=== PATIENT | female | born 1990 | race Caucasian/White ===

== ENCOUNTER 2024-08-21 12:55 | Outpatient (AMB) | payer OTHER, SELFPAY ==
--- NOTE | 2024-08-21 12:56 | A.OFFPC_ITS ---
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 Est Care Intake Note: new patient to establish care Allergies No Known Allergies Allergy (Verified 08/21/24 13:24) Medication List - Last Reconciled 08/21/24 by LION Leo albuterol sulfate 90 mcg/actuation 2 inhalations inhalation Q6H PRN Tobacco use date assessed: 08/21/24 Dental Screening Dental Screen Date: 08/21/24 Did you have a dental visit in the last 12 months?: Yes Did you have a dental problem in the last 6 months where you did not have access to dental care?: No Was dental information given to patient?: Patient has dentist HPI HPI Comments History of Present Illness Details 34-year-old female with irritable bowel syndrome, mild intermittent asthma Status post Social: [facility] Admin Support Health Maintenance: Pap 08/2024 WNL Tdap - declined. Flu declined. 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 c/o blurred vision Has a mole on her back that is growing and changing. Has been present for years. Childhood asthma mild, worse w/ exercise. These sx cont in adulthood. Also has sx when she is sick. Feels winded when climbing 3 stories. Discussed PFT vs CHARLA prn. IBS is well controlled w/ lifestyle and diet mods. Plan: Check routine screening labs refer to Optho for eye exam CHARLA prn, if this does not control sx, let me know and can consider PFT at that time Refer to Derm RTO 1 year sooner PRN PFSH Medical History (Updated 08/21/24 @ 18:14 by LION Leo) Headache STD (female) IBS (irritable bowel syndrome) Asthma Surgical History (Updated 08/21/24 @ 13:14 by Tamara Hinds MA) H/O: Family History (Updated 08/21/24 @ 13:15 by Tamara Hinds MA) Brother Substance abuse Sister Substance abuse Bone cancer Mother Bladder cancer Maternal Grandmother Lung cancer Social History (Updated 08/21/24 @ 13:01 by Tamara Hinds MA) Household Members: Children Housing: Apartment Are you a primary care rep to a significant other at home: Yes Do you presently have visiting nurse or other home services: No Alcohol intake: current Alcohol intake frequency: a few times a month Patient Tobacco Use Status: Never used Tobacco e-Cigarette/Vaping Use: Never Used service: No Current occupational status: employed 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 1. Little interest or pleasure in doing things: not at all 2. Feeling down, depressed, or hopeless: not at all 3. Trouble falling or staying asleep, or sleeping too much: not at all 4. Feeling tired or having little energy: not at all 5. Poor appetite or overeating: not at all 6. Feeling bad about yourself - or that you are a failure or have let yourself or your family down: not at all 7. Trouble concentrating on things, such as reading the newspaper or watching television: several days 8. Moving or speaking so slowly that other people could have noticed. Or the opposite - being so fidgety or restless that you have been moving around a lot more than usual: not at all 9. Thoughts that you would be better off or of hurting yourself in some wa y: not at all Total score: 1 Depression Screening Interpretation: Negative Depression Screening Done: Yes 38046 - PHQ-9 Billing: Yes Source: Developed by Drs. Jeff Armstrong, Idalmis Cardoza, Nicholas Avila and colleagues, with an educational mamie from [employer]. Thrive Questionnaire Date Thrive assessed: 08/21/24 I am a: Patient What is your living situation today?: I have a steady place to live Within the past 12 months, did the food you bought not last and you didn't have the money to get more?: Sometimes True Within the past 12 months, did you worry whether your food would run out before you got money to buy more?: Sometimes True Do you have trouble paying for medicines?: No Do you have trouble getting transportation to medical appointments?: No Do you have trouble paying your heating and electricity bill?: No Do you have trouble taking care of your child, family member or friend?: No Do you have trouble with day-to-day activities such as bathing, preparing meals, shopping, managing finances, etc.?: No Are you currently unemployed and looking for a job?: No Are you interested in more education?: No Please select the resources that you would like help with: None Currently or been in a relationship where the following occur: No concerns reported THRIVE Score: 2 AUDIT C Alcohol Use Questionnaire (AUDIT-C) 1. How often do you have a drink containing alcohol?: Monthly or less 2. How many drinks containing alcohol do you have on a typical day when you are drinking?: 1 or 2 3. How often do you have six or more drinks on one occasion?: Never Total Score: 1 Score Reviewed/Action Taken: Yes FUNMILAYO-7 AMB Questionnaire FUNMILAYO-7 Date FUNMILAYO - 7 assessed: 08/21/24 Feeling nervous, anxious, or on edge: 1 = Several days Not being able to stop or control worryin = Not at all Worrying too much about different things: 0 = Not at all Trouble relaxin = Not at all Being so restless that it is hard to sit still: 0 = Not at all Becoming easily annoyed or irritable: 1 = Several days Feeling afraid as if something awful might happen: 0 = Not at all Total FUNMILAYO-7 score (0-4 normal; 5-9 mild; 10-14 moderate; 15-21 severe): 2 Source: Developed by Drs. Jeff Armstrong, Idalmis Cardoza, Nicholas Avila and colleagues, with an educational mamie from [employer]. FUNMILAYO-7 Assessment Billing FUNMILAYO-7 Assessment Tool: FUNMILAYO-7 Assessment 18934 ACT Questionnaire In the past 4 weeks, how much of the time did your asthma keep you from getting as much done at work, school or at home?: A little of the time During the past 4 weeks, how often have you had shortness of breath?: 3-6 times a week During the past 4 weeks, how often did your asthma symptoms wake you up at night or earlier than usual in the morning?: Not at all During the past 4 weeks, how often have you had to use your rescue inhaler or nebulizer medication?: Not at all How would you rate your asthma control during the past 4 weeks?: Well controlled ACT Interpretation: Negative Score: 21 Review of Systems Const Details: Constitutional: Denies fever. Skin: Denies rash. Eye: Denies eye pain. ENMT: Denies sore throat and nasal congestion. Respiratory: Denies shortness of breath and cough. Gastrointestinal: Denies nausea, vomiting or abdominal pain. Cardiovascular: Denies chest pain and syncope. Genitourinary: Denies dysuria. Musculoskeletal: Denies back pain and extremity pain. Neurologic: Denies headaches, confusion, and weakness. Psychiatric: Denies suicidal thoughts and substance abuse. Allergy/ Immunologic: Denies impaired immunity. Physical exam (Primary Care) Vital Signs: Last Vital Signs Pulse 94 08/21/24 13:02 Resp 13 08/21/24 13:02 BP 110/66 08/21/24 13:02 Pulse Ox 96 08/21/24 13:02 Oxygen Delivery Method Room Air 08/21/24 13:02 BMI result Body Mass Index 25.2 Tobacco/Smoking Status: Tobacco use Status Tobacco use date assessed 08/21/24 08/21/24 13:03 Patient Tobacco Use Status Never used Tobacco 08/21/24 13:03 e-Cigarette/Vaping Use Never Used 08/21/24 13:03 PHQ-9: PHQ-9 Score PHQ-9: Total score 1 08/21/24 13:29 Depression Screening Interpretation: Negative Thrive Assessment: Date of Thrive Assessment Date Thrive assessed 08/21/24 08/21/24 13:16 Currently or been in a relationship where the following occur: No concerns reported Const Other: General: Well developed, well nourished, in no acute distress. Appears stated age. Head: Normocephalic, atraumatic. Eyes: Pupils are equal, round and reactive to light and accommodation. Conjunctivae are clear. Vision grossly normal. Ears: TMs clear AU, EACS WNL Nose: Patent, without discharge. Mouth: There are no ulcers or lesions noted. No inflammation, no post nasal drip, no plaques nor exudates. Neck: Supple, no adenopathy or thyromegaly. Lungs: Clear to auscultation bilaterally. No rales, rhonchi or wheeze noted. Good air flow in all mackenzie. Heart: Regular rate and rhythm. No murmurs, click, rubs or gallops are noted. Abdomen: Bowel sounds present in all quadrants. The abdomen is soft, nontender, with no masses or organomegaly noted. No hernias are noted. Musculoskeletal: Joints are nontender, without swelling, redness, or effusions. Range of motion is observed to be normal. Pulses: Peripheral pulses are equal and palpable bilaterally. Extremities: No clubbing, cyanosis nor edema is noted. Neurologic: Gait and station normal. Cranial Nerves 2-12 intact. Motor strength grossly symmetrical and intact. No sensory loss. Balance normal. Skin: No rashes, ulcer noted. Turgor is good. Skin color is good. Hair and nails are without abnormalities. Scattered nevi noted on extremities and trunk. Posterior back is a raised, pink soft spongy nevus with regular borders about the size of a pea Psych: Normal eye contact, affect and mood appropriate, and normal interactions. Patient is alert and appropriate to context. Coding Level of Care Code New Pt Prev Care 18-39yr([id number] Diagnoses Encounter for general adult medical examination without abnormal findings Z00.00 Atypical mole D22.9 Laboratory exam ordered as part of routine general medical examination Z00.00 Mild intermittent asthma in adult without complication J45.20 Elevated streptolysin O antibody level R76.8 Blurred vision, bilateral H53.8 Influenza vaccination declined Z28.21 Tetanus, diphtheria, and acellular pertussis (Tdap) vaccination declined Z28.21 Additional Codes FUNMILAYO-7 Assessment Billing - FUNMILAYO-7 Assessment Tool: FUNMILAYO-7 Assessment 19842 ([id number]) Asthma Control Questionnaire - ACT Interpretation: Negative ([id number]) Assessment & Plan Assessment & Plan (1) Encounter for general adult medical examination without abnormal findings: Code(s): Z00.00 - Encounter for general adult medical examination without abnormal findings Plan: . (2) Atypical mole: Code(s): D22.9 - Melanocytic nevi, unspecified Category: Medical Plan: . (3) Laboratory exam ordered as part of routine general medical examination: Code(s): Z00.00 - Encounter for general adult medical examination without abnormal findings Category: Medical Plan: . (4) Mild intermittent asthma in adult without complication: Code(s): J45.20 - Mild intermittent asthma, uncomplicated Category: Medical Plan: . (5) Elevated streptolysin O antibody level: Comment: in the past, found during homeopathic workup Code(s): R76.8 - Other specified abnormal immunological findings in serum Category: Medical Plan: . (6) Blurred vision, bilateral: Code(s): H53.8 - Other visual disturbances Category: Medical Plan: . (7) Influenza vaccination declined: Code(s): Z28.21 - Immunization not carried out because of patient refusal Plan: . (8) Tetanus, diphtheria, and acellular pertussis (Tdap) vaccination declined: Code(s): Z28.21 - Immunization not carried out because of patient refusal Plan: . Plan . Orders: Orders Complete Blood Count no Diff Today R76.8 - Other specified abnormal immunological findings in serum, Z00.00 - Encounter for general adult medical examination without abnormal findings Hemoglobin A1c Today R76.8 - Other specified abnormal immunological findings in serum, Z00.00 - Encounter for general adult medical examination without abnormal findings Microalbumin, Random (w Creat) Today R76.8 - Other specified abnormal immunological findings in serum, Z00.00 - Encounter for general adult medical examination without abnormal findings Vitamin B12 and Folate Today R76.8 - Other specified abnormal immunological findings in serum, Z00.00 - Encounter for general adult medical examination without abnormal findings Comprehensive Met. Panel Today R76.8 - Other specified abnormal immunological findings in serum, Z00.00 - Encounter for general adult medical examination without abnormal findings IRON PROFILE Today R76.8 - Other specified abnormal immunological findings in serum, Z00.00 - Encounter for general adult medical examination without abnormal findings TSH reflex Free T4 Today R76.8 - Other specified abnormal immunological findings in serum, Z00.00 - Encounter for general adult medical examination without abnormal findings Vitamin D 25-OH Total Today R76.8 - Other specified abnormal immunological findings in serum, Z00.00 - Encounter for general adult medical examination without abnormal findings Referrals Dermatology Referral D22.9 - Melanocytic nevi, unspecified Ophthalmology Referral H53.8 - Other visual disturbances Medications: New albuterol sulfate 90 mcg/actuation 2 inhalations inhalation Q6H PRN 1 ea 0RF shortness of breath or wheezing
[2024-08-21 13:02] VITALS: BP 110/66; PULSE 94; RESP 13; O2SAT 96; BMI 25.2
== END 2024-08-21 13:42 | disposition home or self-care (01) ==
PROVIDERS: Visit Provider Nurse Practitioner Family
DX: Z00.00 Encounter for general adult medical examination without abnormal findings (principal); D22.9 Melanocytic nevi, unspecified; J45.20 Mild intermittent asthma, uncomplicated; R76.8 Other specified abnormal immunological findings in serum; H53.8 Other visual disturbances; Z28.21 Immunization not carried out because of patient refusal

== ENCOUNTER → 2024-08-21 12:55 | Outpatient (BNVA) | payer OTHER, SELFPAY | PROVIDERS: Visit Provider Nurse Practitioner Family | DX: Z00.01 Encounter for general adult medical examination with abnormal findings (principal); D22.9 Melanocytic nevi, unspecified; J45.20 Mild intermittent asthma, uncomplicated; R76.8 Other specified abnormal immunological findings in serum; H53.8 Other visual disturbances; Z28.21 Immunization not carried out because of patient refusal | CPT/HCPCS: 96127; 96160; 99385 ==

== ENCOUNTER 2024-08-21 13:52 | Outpatient (REF) | payer OTHER, SELFPAY ==
[2024-08-21 18:27] LABS: Alanine Aminotransferase 9 U/L (0-31); Albumin Level 4.1 g/dL (3.5-5.0); Alkaline Phosphatase 36 U/L (39-117); Anion Gap 10 (12-20); Aspartate Amino Transferase 16 U/L (5-31); Bilirubin Total 0.4 mg/dL (0.0-1.0); Blood Urea Nitrogen 10 mg/dL (9-16); Calcium 9.1 mg/dL (8.4-10.2); Carbon Dioxide 26 mmol/L (22-29); Chloride 108 mmol/L (96-108); Estimated Glomerular Filt Rate > 60; Glucose Random 95 mg/dL (60-115); Iron 60 mcg/dL (30-160); Percent Iron Saturation 22 % (15-50); Potassium 3.8 mmol/L (3.3-5.1); Sodium 140 mmol/L (135-145); Total Iron Binding Capacity 273 mcg/dL (228-428); Total Protein 7.1 g/dL (6.5-8.0); Unsaturated Iron Binding 213 ug/dL
[2024-08-21 18:30] LABS: Creatinine Urine 32.91 mg/dL; Microalbumin Urine < 5.0 mg/L
[2024-08-21 18:42] LABS: Vitamin D 25-OH Total 33.8 ng/mL (>30)
[2024-08-21 18:56] LABS: Folate 13.2 ng/mL (> or = 4.0); Vitamin B12 456 pg/mL (200-900)
[2024-08-21 19:40] LABS: Hematocrit 35.9 % (37.0-47.0); Hemoglobin 12.3 g/dl (12.0-16.0); Mean Corpuscular HGB Conc 34.3 g/dl (31.0-35.0); Mean Corpuscular Hemoglobin 31.1 pg (27.0-33.0); Mean Corpuscular Volume 90.7 fL (80.0-98.0); Mean Platelet Volume 11.6 fL (9.4-12.3); Platelet Count 244 X10*3/uL (160-400); Red Blood Count 3.96 X10*6/uL (4.20-5.50); Red Cell Distribution Width 12.7 % (11.0-16.0); White Blood Count 5.1 X10*3/uL (4.8-10.8)
[2024-08-22 05:14] LABS: Estimated Average Glucose 94 mg/dL; Hemoglobin A1C 95.0699 umol/L; Hemoglobin A1c % 4.9 % (<6.0); Total Hemoglobin (HGBA1C) 3146.6339 umol/L
== END 2024-08-21 13:53 | disposition home or self-care (01) ==
LOC: HO.WFDLDS 13:52
PROVIDERS: Visit Provider Nurse Practitioner Family
DX: Z00.00 Encounter for general adult medical examination without abnormal findings (principal); R76.8 Other specified abnormal immunological findings in serum
CPT/HCPCS: 36415; 80053; 82306; 82570; 82607; 82746; 83036; 83540; 84443; 85027

== ENCOUNTER 2025-06-18 15:00 | Outpatient (AMB) | payer OTHER, SELFPAY ==
--- NOTE | 2025-06-18 15:02 | A.OFFPC_ITS ---
Vital Signs 06/18/25 15:09 Height 5 ft 6 in Weight 159 lb 8 oz BMI 25.7 BP 118/70 Blood Pressure Location Rt brachial Position Sitting Respiration 12 Pulse 66 Pulse Source Pulse Oximeter Temp 97.1 F Temp Source Oral Pulse Oximetry (%) 100 Oxygen Delivery Method Room Air Intake Visit Reasons: Hair Loss - Labs Intake Note: Patient c/o both ankle swollen and discoloration x 1 month when patient notice. Tubing Tester Required: No Allergies No Known Allergies Allergy (Verified 06/18/25 15:17) Medication List - Last Reconciled 06/18/25 by APRIL Leo- albuterol sulfate 90 mcg/actuation (ProAir RespiClick) 2 inhalations PO Q6H Tobacco use date assessed: 06/18/25 Dental Screening Dental Screen Date: 06/18/25 Did you have a dental visit in the last 12 months?: Yes Did you have a dental problem in the last 6 months where you did not have access to dental care?: No Was dental information given to patient?: Patient has dentist HPI HPI Comments History of Present Illness Details 34-year-old female with irritable bowel syndrome, mild intermittent asthma Status post Social: [place] Admin Support History of Present Illness - The patient is a 35 year old female pr esenting with ankle swelling and fatigue. - Swelling began 1-2 months ago, increas ed with heel use, family noted variance in usual presentation. - History of preeclampsia, significant v aricose veins visible. - Fatigue described as persistent, easil y falls asleep, struggles with waking. - c/o hair thinning and loss. - Evaluating impact of toddler caregivin g on sleep and energy levels, consideration for potential thyroid dysfunction due to fears sparked by family history. Review of Systems - Cardiovascular: Reports visible varico se veins. - Musculoskeletal: Reports ankle swellin g starting one to two months ago. - Endocrine: Reports persistent fatigue, tiredness, thinning hair, family history of thyroid issues. - General: Reports consistent fatigue, e asiness to fall asleep, difficulty waking up despite adequate sleep. Physical Exam General: Well developed, well nourished, in no acute distress. Appears stated age. Head: Normocephalic, atraumatic. Musculoskeletal: Joints are nontender, without swelling, redness, or effusions. Pulses: Peripheral pulses are equal and palpable bilaterally. + varicose veins ble, skin intact Extremities: Swelling noted in the ankles. Varicose veins are visible. Psych: Mood and affect appropriate. Results Pending Reviewed labs from 08/2024 Discussion Notes I discussed with the patient the presence of visible varicose veins, their symptoms, and how they may contribute to ankle swelling. I recommended referral to a vascular specialist for further evaluation and potential treatment options. These may range from wearing compression stockings to more involved procedures. We discussed checking specific blood labs to understand fatigue and hair thinning further, especially concerning thyroid function and anemia, given the family history of thyroid issues. We also explored the effect of her current lifestyle, particularly caring for a toddler, on her energy levels. I ensured to explain that significant changes in energy and the potential for thyroid issues should be ruled out through labs to be completed at the clinic. Follow-up will be facilitated via the online portal and direct communication methods for lab results. Patient was given time to ask questions. All questions were answered to their satisfaction. Assessment and Plan 1. Varicose Veins - Referral to rotary rock drilling machine operator recom mended for further evaluation. 2.Fatigue - Order local blood tests for thyroid as sessment. - Review Vitamin D levels to assess pote ntial impact. 3. Hair Thinning - Check labs explore lifestyle solutions . Patient Instructions - You need a referral to a vascular spec ialist to look at your veins. - Get blood work done at the clinic for thyroid, iron, and vitamin D. - Stay updated on results using the [employer] portal; you'll get an email when they are available. - Maintain healthy lifestyle choices, ea ting well, and sleeping regularly. - Inform family about findings; understa nding family history is important. - RTO in August for CPE as scheduled, s ooner PRN Consent Patient was informed and verbally consented to the use of an ambient scribe for clinic note documentation during this visit. Total time spent caring for the patient today was 30 minutes. This includes time spent before the visit reviewing the chart, time spent during the visit, and time spent after the visit on documentation, reviewing laboratory results, diagnostic imaging, medications, performing a medically necessary evaluation, counseling on diagnoses, care coordination, ordering appropriate tests, ordering appropriate medications, review of tests performed by other providers, reporting test results with the patient, communication with other healthcare providers. [facility] Medical History (Updated 06/18/25 @ 15:33 by Kinga Stephenson, [facility]) Asthma Headache IBS (irritable bowel syndrome) STD (female) Surgical History (Updated 08/21/24 @ 13:14 by Tamara Hinds MA) H/O: Family History (Updated 08/21/24 @ 13:15 by Tamara Hinds MA) Brother Substance abuse Sister Substance abuse Bone cancer Mother Bladder cancer Maternal Grandmother Lung cancer Social History (Updated 08/21/24 @ 13:01 by Tamara Hinds MA) Household Members: Children Both parents involved: No Caregiver staying overnight: No Housing: Apartment Are you a primary healthcare analyst to a significant other at home: Yes Do you presently have visiting nurse or other home services: No 75 years or older and lives alone: No Alcohol intake: current Alcohol intake frequency: a few times a month Patient Tobacco Use Status: Never used Tobacco e-Cigarette/Vaping Use: Never Used service: No Current occupational status: employed 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 1. Little interest or pleasure in doing things: not at all 2. Feeling down, depressed, or hopeless: not at all 3. Trouble falling or staying asleep, or sleeping too much: several days 4. Feeling tired or having little energy: several days 5. Poor appetite or overeating: not at all 6. Feeling bad about yourself - or that you are a failure or have let yourself or your family down: not at all 7. Trouble concentrating on things, such as reading the newspaper or watching television: not at all 8. Moving or speaking so slowly that other people could have noticed. Or the opposite - being so fidgety or restless that you have been moving around a lot more than usual: not at all 9. Thoughts that you would be better off or of hurting yourself in some way: not at all Total score: 2 Depression Screening Interpretation: Negative Depression Screening Done: Yes 56343 - PHQ-9 Billing: Yes Source: Developed by Drs. Jeff L. PattiIdalmis arcos, Nicholas Avila and colleagues, with an educational mamie from [employer]. Thrive Questionnaire Date Thrive assessed: 06/18/25 I am a: Patient What is your living situation today?: I have a steady place to live Within the past 12 months, did the food you bought not last and you didn't have the money to get more?: I choose not to answer this question Within the past 12 months, did you worry whether your food would run out before you got money to buy more?: I choose not to answer this question Do you have trouble paying for medicines?: I choose not to answer this question Do you have trouble getting transportation to medical appointments?: I choose not to answer this question Do you have trouble paying your heating and electricity bill?: I choose not to answer this question Do you have trouble taking care of your child, family member or friend?: I choose not to answer this question Do you have trouble with day-to-day activities such as bathing, preparing meals, shopping, managing finances, etc.?: I choose not to answer this question Are you currently unemployed and looking for a job?: I choose not to answer this question Are you interested in more education?: I choose not to answer this question Please select the resources that you would like help with: None Currently or been in a relationship where the following occur: No concerns reported THRIVE Score: 0 AUDIT C Alcohol Use Questionnaire (AUDIT-C) 1. How often do you have a drink containing alcohol?: 2-4 times a month 2. How many drinks containing alcohol do you have on a typical day when you are drinking?: 1 or 2 3. How often do you have six or more drinks on one occasion?: Never Total Score: 2 Score Reviewed/Action Taken: Yes FUNMILAYO-7 AMB Questionnaire FUNMILAYO-7 Date FUNMILAYO - 7 assessed: 06/18/25 Feeling nervous, anxious, or on edge: 1 = Several days Not being able to stop or control worryin = Not at all Worrying too much about different things: 1 = Several days Trouble relaxin = Not at all Being so restless that it is hard to sit still: 0 = Not at all Becoming easily annoyed or irritable: 0 = Not at all Feeling afraid as if something awful might happen: 0 = Not at all Total FUNMILAYO-7 score (0-4 normal; 5-9 mild; 10-14 moderate; 15-21 severe): 2 Source: Developed by Drs. Jeff Armstrong, Idalmis Cardoza, Nicholas Avila and colleagues, with an educational mamie from [employer]. FUNMILAYO-7 Assessment Billing FUNMILAYO-7 Assessment Tool: FUNMILAYO-7 Assessment 84197 ACT Questionnaire In the past 4 weeks, how much of the time did your asthma keep you from getting as much done at work, school or at home?: None of the time During the past 4 weeks, how often have you had shortness of breath?: Not at all During the past 4 weeks, how often did your asthma symptoms wake you up at night or earlier than usual in the morning?: Not at all During the past 4 weeks, how often have you had to use your rescue inhaler or nebulizer medication?: Not at all How would you rate your asthma control during the past 4 weeks?: Completely controlled ACT Interpretation: Negative Score: 25 Physical exam (Primary Care) Vital Signs: Last Vital Signs Temp 97.1 F 06/18/25 15:09 Pulse 66 06/18/25 15:09 Resp 12 06/18/25 15:09 BP 118/70 06/18/25 15:09 Pulse Ox 100 06/18/25 15:09 Oxygen Delivery Method Room Air 06/18/25 15:09 BMI result Body Mass Index 25.7 Tobacco/Smoking Status: Tobacco use Status Tobacco use date assessed 06/18/25 06/18/25 15:11 Patient Tobacco Use Status Never used Tobacco 06/18/25 15:04 e-Cigarette/Vaping Use Never Used 06/18/25 15:04 PHQ-9: PHQ-9 Score PHQ-9: Total score 2 06/18/25 15:04 Depression Screening Interpretation: Negative Thrive Assessment: Date of Thrive Assessment Date Thrive assessed 06/18/25 06/18/25 15:04 Currently or been in a relationship where the following occur: No concerns reported Coding Level of Care Code Est Pt Level 4 (22402) Complex EM visit Add On G2211 Diagnoses Varicose veins of both legs with edema I83.893 Laterality: bilateral Mild anemia D64.9 Hair loss L65.9 Fatigue, unspecified type R53.83 Fatigue type: unspecified Additional Codes FUNMILAYO-7 Assessment Billing - FUNMILAYO-7 Assessment Tool: FUNMILAYO-7 Assessment 06744 ([id number]) PHQ-9 - 86308 - PHQ-9 Billing: Yes ([id number]) Asthma Control Questionnaire - ACT Interpretation: Negative ([id number]) Assessment & Plan Assessment & Plan (1) Varicose veins of leg with swelling: Code(s): I83.899 - Varicose veins of unspecified lower extremity with other complications Category: Medical Qualifiers: Laterality: bilateral Qualified Code(s): I83.893 - Varicose veins of bilateral lower extremities with other complications (2) Mild anemia: Comment: 08/2024 start MVI with Iron Code(s): D64.9 - Anemia, unspecified Category: Medical (3) Hair loss: Code(s): L65.9 - Nonscarring hair loss, unspecified Category: Medical (4) Fatigue: Code(s): R53.83 - Other fatigue Category: Medical Qualifiers: Fatigue type: unspecified Qualified Code(s): R53.83 - Other fatigue Plan . Orders: Orders Complete Blood Count no Diff Today D64.9 - Anemia, unspecified, L65.9 - Nonscarring hair loss, unspecified, R53.83 - Other fatigue TSH reflex Free T4 Today D64.9 - Anemia, unspecified, L65.9 - Nonscarring hair loss, unspecified, R53.83 - Other fatigue Vitamin D 25-OH Total Today L65.9 - Nonscarring hair loss, unspecified, R53.83 - Other fatigue Ferritin Today D64.9 - Anemia, unspecified, L65.9 - Nonscarring hair loss, unspecified, R53.83 - Other fatigue Referrals Vascular Surgery Referral I83.893 - Varicose veins of bilateral lower extremities with other complications
[2025-06-18 15:09] VITALS: BP 118/70; PULSE 66; RESP 12; TEMP 36.2; O2SAT 100; BMI 25.7
--- OUTSIDE RECORDS SUMMARY | 2025-06-18 15:33 | XMS_ITS | Encounter Summary ---
Author Organization [facility] Address [address] [place] [address] Care Team Providers Care Inspector Barrel Name Role Phone Zoya Paige Primary Care Provider [phone] Encounter Details Date Type Department Care Team (Latest Contact Info) Description 01/24/2025 Lab Requisition [facility] - Main Lab [address] [facility] [place] [phone] Mary Lazaro MD [address] [phone] Encounter for screening for infections with a predominantly sexual mode of transmission; Acute vaginitis Social History Tobacco Use Types Packs/Day Years Used Date Smoking Tobacco: Never Assessed Comments Unknown Sex and Gender Information Value Date Recorded Sex Assigned at Not on file Legal Sex Female 3:50 PM EDT Gender Identity Not on file Sexual Orientation Not on file documented as of this encounter Plan of Treatment Not on file documented as of this encounter Procedures Procedure Name Priority Date/Time Associated Diagnosis Comments VAGINITIS PATHOGENS BY PCR Routine 01/24/2025 12:00 AM EDT Encounter for screening for infections with a predominantly sexual mode of transmission Acute vaginitis CHLAMYDIA TRACHOMATIS AND NEISSERIA GONORRHOEAE PCR Routine 01/24/2025 12:00 AM EDT Encounter for screening for infections with a predominantly sexual mode of transmission Acute vaginitis documented in this encounter Results * Chlamydia trachomatis and Neisseria gonorrhoeae molecular study (01/24/2025 12:00 AM EDT) Neisseria gonorrhoeae PCR Negative Negative LAB MOLECULAR DIAGNOSTICS METHOD 01/25/2025 10:[address] [facility] Chlamydia trachomatis PCR Negative Negative LAB MOLECULAR DIAGNOSTICS METHOD 01/25/2025 10:[address] [facility] Swab Cervix uteri structure / Unknown 01/24/2025 01/24/2025 6:12 PM EDT Mary Lazaro MD LAB MICROBIOLOGY - GENER AL ORDERABLES Final Result Performing Organization Address City/[facility]/ZIP Co de Phone Number [facility] [address] [place] [address], [place] [phone] * Vaginitis pathogens molecular study (01/24/2025 12:00 AM EDT) Trichomonas vaginalis Negative Negative 01/25/2025 11:[address] [facility] Gardnerella vaginalis Negative Negative 01/25/2025 11:[address] [facility] Olive Species Negative Negative 11:[address] [facility] Swab Vaginal structure / Unknown 01/24/2025 01/24/2025 6:12 PM EDT Mary Lazaro MD LAB MICROBIOLOGY - GENER AL ORDERABLES Final Result [facility] [address] [place] [address], [place] [phone] documented in this encounter Visit Diagnoses Diagnosis Encounter for screening for infections with a predominantly sexual mode of transmission Acute vaginitis Unspecified vaginitis and vulvovaginitis documented in this encounter Care Teams Inspector Barrel Relationship Specialty Start Date End Date Zoya Paige PA [address] [place] [address] PCP - General Internal Medicine 04/07/21 documented as of this encounter
--- OUTSIDE RECORDS SUMMARY | 2025-06-18 15:33 | XMS_ITS | Clinical Summary ---
Author Organization [facility] Address [address] [place] [address] Care Team Providers Care Bridge Manager Name Role Phone Zoya Paige PA-C Primary Care Provider [phone] Source Comments PLEASE NOTE, if this patient is a minor, it may be UNLAWFUL to discuss sensitive information that is contained in these records (such as FAMILY PLANNING, MENTAL HEALTH or SUBSTANCE ABUSE) with the minor patient's parent or other person without the patient's specific authorization.[facility] Allergies No known active allergies Medications terbinafine HCL (LAMISIL) 250 mg tabletIndicatio ns:Tinea corporis Take 1 Tablet by mouth once daily 30 Tablet 04/07/2021 Active APRI 0.15-0.03 mg tablet TAKE 1 TABLET BY MOUTH EVERY DAY IN THE MORNING 05/12/2021 Active ibuprofen 800 mg tabletIndicatio ns:Toe pain, bilateral Take 1 Tablet by mouth 3 (three) times daily as needed for pain 30 Tablet 2 05/27/2021 Active ciprofloxacin HCl (CIPRO) 500 mg tabletIndicatio ns:Acute cystitis with hematuria Take 1 Tablet by mouth once daily 3 Tablet 09/11/2021 Active valACYclovir (VALTREX) 1 gram tablet TAKE 2 TABLETS BY MOUTH EVERY 12 HOURS NEEDED FOR OUTBREAK, REPEAT WITH NEXT OUTBREAK 180 Tablet 2 10/18/2023 Active Active Problems Problem Noted Date Diagnosed Date Herpes labialis 09/08/2015 Social History Tobacco Use Types Packs/Day Years Used Date Smoking Tobacco: Never Smokeless Tobacco: Never Alcohol Use Standard Drinks/Week Comments Yes 0 (1 standard drink = 0.6 oz pur e alcohol) socially Social Connections Answer Date Recorded Connectedness 0 07/20/2024 Financial Resource Strain Answer Date R ecorded Financial Resource Strain 0 2018 Stress Answer Date Recorded Stress 0 07/03/2019 Physical Activity Answer Date Recorded Physical Activity 0 07/03/2019 Food Insecurity Answer Date Recorded Food 0 08/09/2024 Transportation Needs Answer Date Record ed Transportation 0 07/03/2019 Housing Stability Answer Date Recorded Housing 0 07/03/2019 Safety and Environment Answer Date Marcos rded Safety 0 03/17/2021 Utilities Answer Date Recorded Utilities 0 07/03/2019 Employment Answer Date Recorded Employment 0 07/03/2019 Comments Unknown Sex and Gender Information Value Date Recorded Sex Assigned at Female 11/29/2017 11:31 AM PST Legal Sex Female 11:36 AM PDT Gender Identity Female 11/29/2017 11:31 AM PST Sexual Orientation Straight 11/29/2017 11 :31 AM PST Last Filed Vital Signs Vital Sign Reading Time Taken Comments Blood Pressure 90/58 01/12/2022 10:27 AM EST Pulse 70 01/12/2022 10:27 AM EST Temperature 36.7 C (98.1 F) 01/12/2022 10:27 AM EST Respiratory Rate 18 01/12/2022 10:27 AM EST Oxygen Saturation 98% 05/27/2021 4:05 PM EDT Inhaled Oxygen Concentration - - Weight 66.2 kg (146 lb) 01/12/2022 10:27 AM EST Height 165.1 cm (5' 5 ) 01/12/2022 10:27 AM EST Body Mass Index 24.3 01/12/2022 10:27 AM EST Plan of Treatment Health Maintenance Due Date Last Done Comments Anxiety Screening 1990 HPV Screening 1990 Pap + HPV 1990 Tobacco Screening 1990 Imm-DTaP/Tdap/Td (1 - Tdap) 2009 Imm-Hepatitis B (1 of 3 - 19 + 3-dose series) 2009 Cervical Cancer Screening 09/12/2017 Pap Smear 09/12/2017 09/12/2014 Relationship Safety Screening/Counseling 03/17/2022 03/17/2021 Diabetes Screening 06/04/2024 06/04/2021, 04/07/2021 [id number] () 07/15/2024 Alcohol and Drug Screen 11/14/2024 01/12/2022, 03/17 Depression Annual Screen 11/14/2024 01/12/2022 Hypertension Screening (#1) 01/11/2025 Imm-Influenza (#1) 2025 HIV Screening Completed 04/07/2021 Hepatitis C Screening Completed 04/07/2021 Cervical Ablation/Cold-Knife Conization Discontinued Cervical Cryotherapy Discontinued Colposcopy Discontinued Endometrial Biopsy Discontinued Excision/Leep Discontinued HPV Genotyping Discontinued Vaginal Pap Discontinued Vulvoscopy Discontinued Procedures Procedure Name Priority Date/Time Associated Diagnosis Comments COMPREHENSIVE METABOLIC PANEL Routine 06/04/2021 1:30 PM EDT Toe pain, bilateral HIV 1/2 AG & AB W/RFLX (4TH GEN) Routine 04/07/2021 2:27 PM EDT Tinea corporis HEPATITIS C AB W/RFLX HCV RNA, QT, RT PCR Routine 04/07/2021 2:27 PM EDT Tinea corporis from Last 3 Months or Most Recently Relevant to Health Maintenance Results * COMPREHENSIVE METABOLIC PANEL (06/04/2021 1:30 PM EDT) GLUCOSE 81 65 - 99 mg/dL [facility] Comment: Fasting reference interval UREA NITROGEN (BUN) 10 7 - 25 mg/dL [facility] CREATININE (blood) 0.74 0.50 - 1.10 mg/dL [facility] GFR ESTIMATED 108 > OR = 60 mL/min/1 .73m2 [facility] EGFR 125 > OR = 60 mL/min/1 .73m2 [facility] BUN/CREATININE RATIO NOT APPLICABLE [facility] SODIUM 136 135 - 146 mmol/L [facility] POTASSIUM 3.7 3.5 - 5.3 mmol/L [facility] CHLORIDE 103 98 - 110 mmol/L [facility] CARBON DIOXIDE 27 20 - 32 mmol/L [facility] CALCIUM 8.6 8.6 - 10.2 mg/dL [facility] PROTEIN, TOTAL 6.8 6.1 - 8.1 g/dL [facility] ALBUMIN 4.1 3.6 - 5.1 g/dL [facility] GLOBULIN 2.7 1.9 - 3.7 g/dL (calc) [facility] ALBUMIN/GLOBUL IN RATIO 1.5 1.0 - 2.5 (calc) [facility] BILIRUBIN, TOTAL 0.6 0.2 - 1.2 mg/dL [facility] ALKALINE PHOSPHATASE 46 31 - 125 U/L [facility] AST 15 10 - 30 U/L [facility] ALT 8 6 - 29 U/L [facility] Blood Blood / Unknown 06/04/2021 1 :30 PM EDT 06/04/2021 1:30 PM EDT Genia Thomson TUM[facility] T[facility] LAB - BLOOD DRAW Final Result Performing Organization Address [facility]/ZIP Co de Phone Number [facility] [address] [address], [facility] [address] [address] * HEPATITIS C AB W/RFLX HCV RNA, QT, RT PCR (04/07/2021 2:27 PM EDT) HEPATITIS C ANTIBODY NON-REACT ELMER NON-REACT ELMER [facility] SIGNAL TO CUT-OFF 0.01 <1.00 [facility] Comment: HCV antibody was non-reactive. There is no laboratory evidence of HCV infection. In most cases, no further action is required. However, if recent HCV exposure is suspected, a test for HCV RNA (test code 27946) is suggested. For additional information please refer to http://education.Compufirst/faq/VKG58c1 (This link is being provided for informational/ educational purposes only.) Blood Blood / Unknown 04/07/2021 2 :27 PM EDT 04/07/2021 2:28 PM EDT Zoya Paige PA-C LAB - BLOOD DRAW Final Resul t Performing Organization Address City/[facility]/ZIP Co de Phone Number [facility] [address] [address], [employer] [address] [phone] from Last 3 Months or Most Recently Relevant to Health Maintenance Insurance [employer] ([employer]) Member Subscriber Plan / Payer (Ef fective 2021-Present) Name:Sue Ch Relation to Subscriber:Self Name:Sue Ch Payer ID:[id number] Group ID:Not on file Type:Indemnimannie Address: [address] [place] [id number] Care Teams Bridge Manager Relationship Specialty Start Date End Date Zoya Paige PA-C [address] [place] [address] PCP - General Internal Medicine 03/17/21
== END 2025-06-18 15:30 | disposition home or self-care (01) ==
LOC: HO.HMCFM 15:01
PROVIDERS: Visit Provider Nurse Practitioner Family
DX: I83.893 Varicose veins of bilateral lower extremities with other complications (principal); D64.9 Anemia, unspecified; L65.9 Nonscarring hair loss, unspecified; R53.83 Other fatigue

== ENCOUNTER → 2025-06-18 15:00 | Outpatient (BNVA) | payer OTHER, SELFPAY | PROVIDERS: Visit Provider Nurse Practitioner Family | DX: J45.20 Mild intermittent asthma, uncomplicated (principal); K58.9 Irritable bowel syndrome, unspecified; R53.83 Other fatigue; I83.893 Varicose veins of bilateral lower extremities with other complications; D64.9 Anemia, unspecified; L65.9 Nonscarring hair loss, unspecified | CPT/HCPCS: 96127; 96160; 99212 ==

== ENCOUNTER 2025-06-18 15:34 | Outpatient (REF) | payer OTHER, SELFPAY ==
[2025-06-18 18:30] LABS: Hematocrit 35.5 % (37.0-47.0); Hemoglobin 12.0 g/dl (12.0-16.0); Mean Corpuscular HGB Conc 33.8 g/dl (31.0-35.0); Mean Corpuscular Hemoglobin 29.9 pg (27.0-33.0); Mean Corpuscular Volume 88.3 fL (80.0-98.0); NRBC Abs Auto 0.000 X10*3/uL (0.0-0.012); NRBC Pct Auto 0.0 /100WBC (0.0-0.2); Platelet Count 235 X10*3/uL (160-400); Red Blood Count 4.02 X10*6/uL (4.20-5.50); White Blood Count 5.5 X10*3/uL (4.8-10.8)
[2025-06-18 19:03] LABS: Ferritin 23 ng/mL (10-122)
== END 2025-06-18 15:35 | disposition home or self-care (01) ==
LOC: HO.WFDLDS 15:34
PROVIDERS: Visit Provider Nurse Practitioner Family
DX: R53.83 Other fatigue (principal); L65.9 Nonscarring hair loss, unspecified; D64.9 Anemia, unspecified
CPT/HCPCS: 36415; 82306; 82728; 84443; 85027

== ENCOUNTER 2025-07-30 14:26 | Outpatient (AMB) | payer OTHER, SELFPAY ==
[2025-07-30 14:36] VITALS: BMI 25.7
--- NOTE | 2025-07-30 14:36 | MHC.OFFVIS ---
Vital Signs 07/30/25 14:36 Height 5 ft 6 in Weight 159 lb BMI 25.7 Intake Visit Reasons: [employer]/ PCP referral for VV Intake Note: [employer]/ VV bilateral LE posterior thighs. Pt states her family members all have VV as well. states when sitting at work they ache. Right slightly worse and does have swelling in ankles as well. Bacon De Rinder Required: No Accompanied by: Self / Same As Patient Allergies No Known Allergies Allergy (Verified 07/30/25 14:42) HPI HPI [employer]/ PCP referral for VV: Details: Very pleasant 35-year-old female patient presents for painful varicose veins. Complaints include pain over varicosities, swelling of lower extremities, cramping, fatigue, and heaviness of the lower extremities. 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 It is noted more so in right leg. She notes it is more so the ankles Patient denies any previous venous surgery or injections. Patient denies any history of DVT/ PE. Patient denies any history of phlebitis. Trial of compression includes - [id number] They now present for vascular evaluation regarding their varicose veins. [facility] Medical History Headache STD (female) IBS (irritable bowel syndrome) Asthma Surgical History H/O: Family History Brother Substance abuse Sister Substance abuse Bone cancer Mother Bladder cancer Maternal Grandmother Lung cancer Social History Household Members: Children Both parents involved: No Caregiver staying overnight: No Housing: Apartment Are you a primary hemodialysis patient care specialist to a significant other at home: Yes Do you presently have visiting nurse or other home services: No 75 years or older and lives alone: No Alcohol intake: current Alcohol intake frequency: a few times a month Patient Tobacco Use Status: Never used Tobacco e-Cigarette/Vaping Use: Never Used service: No Current occupational status: employed 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 Cognitive needs: No Hearing needs: No Vision needs: Yes (wear glasses) Review of Systems Const Reports as per HPI ENT Reports no additional complaints Card Denies chest pain, Denies chest pain at rest and Denies chest pain with activity Resp Denies chest congestion and Denies cough GI Reports no additional complaints Musc Details: pain over varicosities, aching of lower extremities, swelling, cramping, heaviness and tiredness, itching Denies abnormal gait Skin/Breast Reports pruritus and Denies wounds Neuro Reports no additional complaints and Denies abnormal gait Psych Denies no additional complaints Physical Exam Vital Signs: BMI result Body Mass Index 25.7 Const General: cooperative, healthy appearing and comfortable Orientation/consciousness: oriented to person, oriented to place and oriented to time Neck Carotids: no bruits Chest Chest palpation & inspection: normal inspection of the chest and normal palpation of entire chest wall Resp Effort & Inspection: normal respiratory effort and able to speak in complete sentences Cardio Rate: regular rate Heart sounds: S1 normal heart sound present and S2 normal heart sound present Peripheral pulses: Peripheral pulses 2+ throughout GI Inspection: Yes normal to inspection Skin Other: +2 edema, multiple spider telangiectasias CEAP Classification C4 - skin color changes Ep - Etiology Primary As - superficial veins P - reflux General skin exam: dry skin Neuro General: oriented to person, oriented to place and oriented to time Extrem Right lower extremity: full ROM, normal capillary refill and edema Left lower extremity: full ROM, normal capillary refill and edema Psych Mental Status: mental status grossly normal Assessment & Plan Assessment & Plan (1) Varicose veins of right lower extremity with inflammation: Code(s): I83.11 - Varicose veins of right lower extremity with inflammation Category: Medical Plan: In short, the patient has evidence of venous insufficiency. I have discussed the pathophysiology with the patient. In addition I have provided informational material regarding venous disease to the patient. We have discussed conservative measures including compression, elevation, and exercise. I have also provided a handout regarding appropriate use of compression stockings and where to purchase good compression stockings as well. I have taken the liberty of ordering venous insufficiency testing with the patient. They will follow up with me after testing. The patient had an opportunity to ask questions regarding the treatment plan. All questions were answered. Imaging studies, laboratory studies and physical exam results were discussed and reviewed in detail. No major barriers to understanding were identified. The patient expressed understanding and agreement with the above treatment plan. The patient is aware they should contact our office by phone for worsening of the current condition or the appearance of new symptoms. Thank you for allowing me to participate in the vascular care of this patient. If you have any questions or concerns regarding the treatment for the above condition please do not hesitate to contact me. The office telephone contact is [phone]. This note is constructed using voice recognition software. While every effort has been made to ensure accuracy, associate civil engineer errors may have been included. Thank you for allowing me to participate in the care of your patient. Yours sincerely, Lionel Edgar MD, FACS, R.P.V.I. Orders: Orders US venous duplex LE BI Today I83.11 - Varicose veins of right lower extremity with inflammation Coding Level of Care Code New Pt Level 4 (17344) Diagnoses Varicose veins of right lower extremity with inflammation I83.11
--- OUTSIDE RECORDS SUMMARY | 2025-07-30 18:13 | XMS_ITS | Encounter Summary ---
Author Organization [facility] Address [address] [place] [address] Care Team Providers Care Grants Manager Name Role Phone Zoya Paige Primary Care Provider [phone] Encounter Details Date Type Department Care Team (Latest Contact Info) Description 05/16/2025 Lab Requisition [facility] - Main Lab [address] [place] [phone] Farooq Davila MD [address] [phone] Encounter for screening for infections with a predominantly sexual mode of transmission Social History Tobacco Use Types Packs/Day Years [...] Procedure Name Priority Date/Time Associated Diagnosis Comments CHLAMYDIA TRACHOMATIS AND NEISSERIA GONORRHOEAE PCR Routine 05/16/2025 12:00 AM EDT Encounter for screening for infections with a predominantly sexual mode of transmission documented in this encounter Results * Chlamydia trachomatis and Neisseria gonorrhoeae molecular study (05/16/2025 12:00 AM EDT) Neisseria gonorrhoeae PCR Negative Negative LAB MOLECULAR DIAGNOSTICS METHOD 05/17/2025 10:42 AM EDT [facility] Chlamydia trachomatis PCR Negative Negative LAB MOLECULAR DIAGNOSTICS METHOD 05/17/2025 10:42 AM EDT [facility] Swab Cervix uteri structure / Unknown 05/16/2025 05/16/2025 5:54 PM EDT us Farooq Davila MD LAB MICROBIOLOGY - GENERAL ORD ERABLES Final Result [facility] [address] [place] [address], documented in this encounter Visit Diagnoses Diagnosis Encounter for screening for infections with a predominantly sexual mode of transmission documented in this encounter Care Teams Grants Manager Relationship Specialty Start Date End Date Zoya Paige PA [address] [place] [address] PCP - General Internal Medicine 04/07/21 documented as of this encounter
--- OUTSIDE RECORDS SUMMARY | 2025-07-30 18:13 | XMS_ITS | Encounter Summary ---
[facility] Organization [facility] Address [address] [place] [address] Care Team Providers Care Telephone Diaphragm Assembler Name Role Phone Zoya Paige Primary Care Provider [phone] Encounter Details Date Type Department Care Team (Latest Contact Info) Description 01/24/2025 Lab Requisition [facility] - Main Lab 299 [facility] [place] [phone] Mary Lazaro MD [address] [phone] Encounter for screening for infections with a [...] MOLECULAR DIAGNOSTICS METHOD 01/25/2025 10:56 AM EDT [facility] Chlamydia trachomatis PCR Negative Negative LAB MOLECULAR DIAGNOSTICS METHOD 01/25/2025 10:56 AM EDT [facility] Swab Cervix uteri structure / Unknown 01/24/2025 01/24/2025 6:12 PM EDT Mary Lazaro MD LAB MICROBIOLOGY - GENER AL ORDERABLES Final Result Performing Organization Address City/[facility]/ZIP Co de Phone Number [facility] [address] [place] [address], [place] [phone] * Vaginitis pathogens molecular study (01/24/2025 12:00 AM EDT) Trichomonas vaginalis Negative Negative 01/25/2025 11:14 AM EDT [facility] Gardnerella vaginalis Negative Negative 01/25/2025 11:14 AM EDT [facility] Olive Species Negative Negative 11:14 AM EDT [facility] Swab Vaginal structure / Unknown 01/24/2025 01/24/2025 6:12 PM EDT Mary Lazaro MD LAB MICROBIOLOGY - GENER AL ORDERABLES Final Result [facility] [address] [place] [address], [place] [phone] documented in this encounter Visit Diagnoses Diagnosis Encounter for screening for infections with a predominantly sexual mode of transmission Acute vaginitis Unspecified vaginitis and vulvovaginitis documented in this encounter Care Teams Telephone Diaphragm Assembler Relationship Specialty Start Date End Date Zoya Paige PA [address] [place] [address] PCP - General Internal Medicine 04/07/21 documented as of this encounter
--- OUTSIDE RECORDS SUMMARY | 2025-07-30 18:13 | XMS_ITS | Clinical Summary ---
Author Organization [facility] Address [address] [place] [address] Care Team Providers Care Sustainable Landscape Architect Name Role Phone Zoya Paige Primary Care Provider [phone] Encounters Date Type Department Care Team Description 06/27/[address] [facility] [address] [place] [phone] sp Lola Hussein & Jaquelin Ob-Fitness Teacher Acute vaginitis 05/20/[address] [facility] Lab [address] [place] [phone] Farooq Davila MD Encounter for gynecological examination (general) (routine) without abnormal findings 05/16/[address] [facility] Lab [address] [place] [phone] Farooq Davila MD Encounter for screening for infections with a predominantly sexual mode of transmission from Last 3 Months Social History Tobacco Use Types Packs/Day Years Used Date Smoking Tobacco: Never Assessed Comments Unknown Sex and Gender Information Value Date Recorded Sex Assigned at Not on file Legal Sex Female 3:50 PM EDT Gender Identity Not on file Sexual Orientation Not on file Plan of Treatment Health Maintenance Due Date Last Done Comments DTaP,Tdap,and Td Vaccines (1 - Tdap) 2009 Hepatitis B Vaccines (1 of 3 - 19+ 3-dose series) 2009 HIV Screening 10/09/2024 Hepatitis C Screening 10/09/2024 Social Influencers of Health Screening 10/09/2024 Depression Screening 11/14/2024 COVID-19 Vaccine (2023-2 5 season) 2025 Influenza Vaccine (#1) 2025 Cervical Cancer Screening: HPV 05/16/2030 05/16/2025 HIB Vaccines Aged Out No longer eligi ble based on patient's age to complete this topic HPV Vaccines Aged Out No longer eligi ble based on patient's age to complete this topic Hepatitis A Vaccines Aged Out No long er eligible based on patient's age to complete this topic IPV Vaccines Aged Out No longer eligi ble based on patient's age to complete this topic MMR Vaccines Aged Out No longer eligi ble based on patient's age to complete this topic Meningococcal ACWY Vaccine Aged Out N o longer eligible based on patient's age to complete this topic Meningococcal B Vaccine Aged Out No l onger eligible based on patient's age to complete this topic Pneumococcal Vaccine: Pediat rics (0 to 5 Years) and At-Risk Patients (6 to 49 Years) Aged Out No longer eligi ble based on patient's age to complete this topic RSV Immunization Patients Un davin 20 months Aged Out No longer eligible b ased on patient's age to complete this topic Varicella Vaccines Aged Out No longer eligible based on patient's age to complete this topic Procedures Procedure Name Priority Date/Time Associated Diagnosis Comments CHLAMYDIA TRACHOMATIS AND NEISSERIA GONORRHOEAE PCR Routine 06/27/2025 12:00 AM EDT Acute vaginitis VAGINITIS PATHOGENS BY PCR Routine 06/27/2025 12:00 AM EDT Acute vaginitis PAP SMEAR Routine 05/16/2025 12:00 AM EDT Encounter for gynecological examination (general) (routine) without abnormal findings HPV WITH REFLEX GENOTYPE Routine 05/16/2025 12:00 AM EDT Encounter for gynecological examination (general) (routine) without abnormal findings CHLAMYDIA TRACHOMATIS AND NEISSERIA GONORRHOEAE PCR Routine 05/16/2025 12:00 AM EDT Encounter for screening for infections with a predominantly sexual mode of transmission from Last 3 Months Results * (ABNORMAL) Vaginitis pathogens molecular study (06/27/2025 12:00 AM EDT) Trichomonas vaginalis Negative Negative 06/28/2025 12:41 PM EDT [facility] Gardnerella vaginalis Positive(A) Negative 06/28/2025 12:41 PM EDT [facility] Olive Species Negative Negative 12:41 PM EDT [facility] Swab Vaginal structure / Unknown 06/27/2025 06/27/2025 6:02 PM EDT Davila Kohort & Alvin-Bettina O b-Fitness Teacher [facility] Hussein LAB MICROBIOLOGY - GENERAL ORDERABLES Final Result Performing Organization Address City/[facility]/ZIP Co de Phone Number [facility] [address] [place] [address], [place] [phone] * Chlamydia trachomatis and Neisseria gonorrhoeae molecular study (06/27/2025 12:00 AM EDT) Only the most recent of2 resultswithin the time period is included. Pathologist [facility] Neisseria gonorrhoeae PCR Negative Negative LAB MOLECULAR DIAGNOSTICS METHOD 06/28/2025 9:34 AM EDT [facility] Chlamydia trachomatis PCR Negative Negative LAB MOLECULAR DIAGNOSTICS METHOD 06/28/2025 9:34 AM EDT [facility] Swab Cervix uteri structure / Unknown 06/27/2025 06/27/2025 6:02 PM EDT us Davila Costs & Alvin-Bettina O b-Fitness Teacher [facility] Hussein LAB MICROBIOLOGY - GENERAL ORDERABLES Final Result [facility] [address] [place] [address], [place] [phone] * HPV with reflex genotype (05/16/2025 12:00 AM EDT) HPV Negative Negative LAB MICROBIOLOGY METHOD 05/21/2025 1:57 PM EDT [facility] Brushing/Spatula Cervix uteri structure / Unknown 05/16/2025 05/20/2025 7:52 AM EDT Farooq Davila MD LAB MOLECULAR DIAGNOSTICS ÁNGEL EGAN Final Result [facility] [address] [place] [address], * Pap smear (05/16/2025 12:00 AM EDT) Interpretation Negative for intraepithelial lesion or malignancy 05/22/2025 4:32 PM EDT [facility] General Categorization Negative 05/22/2025 4:32 PM EDT [facility] LMP 04/24/2025 05/22/2025 4:32 PM EDT [facility] Specimen Adequacy Satisfactory for evaluation, endocervical/tellez sformation zone component absent 05/22/2025 4:32 PM EDT [facility] Pap Methodology Liquid Based Pap Test 05/22/2025 4:32 PM EDT [facility] Disclaimer The Pap test is a screening test which carries an inherent false negative rate. These test results should be correlated with the patient's clinical findings and history. This Pap test was processed using an automated screening system. Technical cytopathology services provided by [facility], at [address] [place] [address] (CLIA # [id number]/Ryan Reyes MD, Platen Press Feeder.) 05/22/2025 4:32 PM EDT [facility] Console Pap Interpretation Reported 05/22/2025 4:32 PM EDT [facility] Brushing/Spatula Cervix uteri structure / Unknown 05/16/2025 05/20/2025 7:52 AM EDT us Farooq Davila MD LAB CYTOLOGY ORDERABLES Final Result [facility] [address] [place] [address], from Last 3 Months Insurance [facility] [employer] [place] [address] MEDICAID - [place] Care Teams Sustainable Landscape Architect Relationship Specialty Start Date End Date Zoya Paige PA [address] [place] [address] PCP - General Internal Medicine 04/07/21
--- OUTSIDE RECORDS SUMMARY | 2025-07-30 18:13 | XMS_ITS | Clinical Summary ---
Author Organization [facility] Address [address] [place] [address] Care Team Providers Care Bulker Name Role Phone Zoya Paige PA-C Primary Care Provider Source Comments PLEASE NOTE, if this patient [...] 3 - 19 + 3-dose series) 2009 Imm-HPV (1 - 3-dose SCDM series) 2017 Cervical Cancer Screening 09/12/2017 Pap Smear 09/12/2017 09/12/2014 Relationship Safety Screening/Counseling 03/17/2022 03/17/2021 Diabetes Screening 06/04/2024 06/04/2021, 04/07/2021 Alcohol and Drug Screen 11/14/2024 01/12/2022, 03/17 Depression Annual Screen 11/14/2024 01/12/2022 Hypertension Screening (#1) 01/11/2025 [id number] ( season) 2025 Imm-Influenza (#1) 2025 HIV Screening Completed 04/07/2021 [...] EDT) GLUCOSE 81 65 - 99 mg/dL [facility] Comment: Fasting reference interval UREA NITROGEN (BUN) 10 7 - 25 mg/dL [facility] CREATININE (blood) 0.74 0.50 - 1.10 mg/dL [facility] GFR ESTIMATED 108 > OR = 60 mL/min/1 .73m2 [facility] EGFR 125 > OR = 60 mL/min/1 .73m2 [facility] BUN/CREATININE RATIO NOT APPLICABLE 6 - [facility] SODIUM 136 135 - 146 mmol/L [facility] POTASSIUM 3.7 3.5 - 5.3 mmol/L [facility] CHLORIDE 103 98 - 110 mmol/L [facility] CARBON DIOXIDE 27 20 - 32 mmol/L [facility] CALCIUM 8.6 8.6 - 10.2 mg/dL [facility] PROTEIN, TOTAL 6.8 6.1 - 8.1 g/dL [facility] ALBUMIN 4.1 3.6 - 5.1 g/dL [facility] GLOBULIN 2.7 1.9 - 3.7 g/dL (calc) [facility] ALBUMIN/GLOBUL IN RATIO 1.5 1.0 - 2.5 (calc) [facility] BILIRUBIN, TOTAL 0.6 0.2 - 1.2 mg/dL [facility] ALKALINE PHOSPHATASE 46 31 - 125 U/L [facility] AST 15 10 - 30 U/L [facility] ALT 8 6 - 29 U/L [facility] Blood Blood / Unknown 06/04/2021 1 :30 PM EDT 06/04/2021 1:30 PM EDT Genia Thomson WEB CONTENT SPECIALIST LAB - BLOOD DRAW Final Result Performing Organization Address [facility] Co de Phone Number [facility] [address] [address], [facility] [address] [address] * HEPATITIS C AB W/RFLX HCV RNA, QT, RT PCR (04/07/2021 2:27 PM EDT) HEPATITIS C ANTIBODY NON-REACT ELMER NON-REACT ELMER [facility] SIGNAL TO CUT-OFF 0.01 <1.00 [facility] Comment: HCV antibody was non-reactive. There is no laboratory evidence of HCV infection. In most cases, no further action is required. However, if recent HCV exposure is suspected, a test for HCV RNA (test code 59044) is suggested. For additional information please refer to http://education.[employer]/faq/BAY55r8 (This link is being provided for informational/ educational purposes only.) Blood Blood / Unknown 04/07/2021 2 :27 PM EDT 04/07/2021 2:28 PM EDT Zoya Paige PA-C LAB - BLOOD DRAW Final Resul t Performing Organization Address City/[facility]/ZIP Co de Phone Number [facility] [address] [address], [address] [address] [address] from Last 3 Months or Most Recently Relevant to Health Maintenance Insurance [employer] ([employer] [place]) Member Subscriber Plan / Payer (Ef fective 2021-Present) Name:Sue Ch Relation to Subscriber:Self Name:Sue Ch Payer ID:[id number] Group ID:Not on file Type:Indemnimannie Address: [address] [place] [address] Care Teams Bulker Relationship Specialty Start Date End Date Zoya Paige PA-C [address] [place] [phone] PCP - General Internal Medicine 03/17/21
--- OUTSIDE RECORDS SUMMARY | 2025-07-30 18:13 | XMS_ITS | Encounter Summary ---
Author Organization [facility] Address [address] [place] [address] Care Team Providers Care Limousine Rental Clerk Name Role Phone Zoya Paige Primary Care Provider Encounter Details Date Type Department Care Team (Late st Contact Info) Description 06/27/[address] [facility] - Main Lab 299 [facility] [place] [address] [facility] [[email or web address]] Lola Hussein & AlvinReyes Ob-Cigarette Roller Acute vaginitis Social History Tobacco Use Types [...] Diagnosis Comments VAGINITIS PATHOGENS BY PCR Routine 06/27/2025 12:00 AM EDT Acute vaginitis CHLAMYDIA TRACHOMATIS AND NEISSERIA GONORRHOEAE PCR Routine 06/27/2025 12:00 AM EDT Acute vaginitis documented in this encounter Results * Chlamydia trachomatis and Neisseria gonorrhoeae molecular study (06/27/2025 12:00 AM EDT) Neisseria gonorrhoeae PCR Negative Negative LAB MOLECULAR DIAGNOSTICS METHOD 06/28/2025 9:34 AM EDT [facility] Chlamydia trachomatis PCR Negative Negative LAB MOLECULAR DIAGNOSTICS METHOD 06/28/2025 9:34 AM EDT [facility] Swab Cervix uteri structure / Unknown 06/27/2025 06/27/2025 6:02 PM EDT [facility] [employer] & [facility]-Bettina O b-Cigarette Roller [facility] [[email or web address]] Hussein LAB MICROBIOLOGY - GENERAL ORDERABLES Final Result Performing Organization Address City/[facility]/ZIP Co de Phone Number [facility] [address] [place] [address], [place] [phone] * (ABNORMAL) Vaginitis pathogens molecular study (06/27/2025 12:00 AM EDT) Trichomonas vaginalis Negative Negative 06/28/2025 12:41 PM EDT [facility] Gardnerella vaginalis Positive(A) Negative 06/28/2025 12:41 PM EDT [facility] Olive Species Negative Negative 12:41 PM EDT [facility] Swab Vaginal structure / Unknown 06/27/2025 06/27/2025 6:02 PM EDT [facility] Geos[employer] & [facility]-Bettina O b-Cigarette Roller [facility] [[email or web address]] Hussein LAB MICROBIOLOGY - GENERAL ORDERABLES Final Result Performing Organization Address [facility]/ZIP Co de Phone Number [facility] [address] [place] [address], [place] [phone] documented in this encounter Visit Diagnoses Diagnosis Acute vaginitis Unspecified vaginitis and vulvovaginitis documented in this encounter Care Teams Limousine Rental Clerk Relationship Specialty Start Date End Date Zoya Paige PA [address] [place] [address] PCP - General Internal Medicine 04/07/21 documented as of this encounter
--- OUTSIDE RECORDS SUMMARY | 2025-07-30 18:13 | XMS_ITS | Patient Health Record ---
Author Organization [facility] Address [address] [facility] [place] [address] Care Team Providers Care Braid Folder Name Role Phone Royal MAXWELL, Zoya Primary Care Provider Unavail able Amy Miller Unavailable [phone] Allergies No Known Allergies Reason For Referral No Information Social History Tobacco Use: Social History Observation Description Date Details (start date - stop date) Never Smoker NA - NA Tobacco Use/Smoking Question Answer Notes Are you a: nonsmoker Additional Findings: Tobacco Non-User Current no n-smoker Alcohol Screen Question Answer Notes Did you have a drink contain ing alcohol in the past year? Yes How often did you have a dri nk containing alcohol in the past year? Monthly or less (1 point) Points 1 Interpretation Negative Tobacco use other than smoking: Question Answer Notes Are you an other tobacco user? No Plan Of Treatment Pending Test Test Name Order Date KALLI Comprehensive Panel 06/25/2021 ESR 06/25/2021 X ray : Foot, left 3V 06/25/2021 X ray : Foot, right 3V 06/25/2021 Insurance Providers Payer Name Payer Address Payer Phone Subscriber Number Group Number Insured Name Patient Relationship to Insured Coverage Start Date Coverage End Date [facility] [address] [place] [id number] DimaSue kennedy Self - patient is the insured Medical (General) History Medical History History ICD Code asthma Broken bones Chicken pox Psoriasis/eczema Surgical History Surgery Date(Month/Year)
--- OUTSIDE RECORDS SUMMARY | 2025-07-30 18:13 | XMS_ITS | Encounter Summary ---
Author Organization [facility] Address [address] [place] [address] Care Team Providers Care Group Activities Aide Name Role Phone Zoya Paige Primary Care Provider [phone] Encounter Details Date Type Department Care Team (Latest Contact Info) Description 05/20/2025 Lab Requisition [facility] - Main Lab [address] [facility] [place] [phone] Farooq Davila MD [address] [phone] Encounter for gynecological examination (general) (routine) without abnormal findings Social History Tobacco Use Types Packs/Day Years [...] Procedure Name Priority Date/Time Associated Diagnosis Comments HPV WITH REFLEX GENOTYPE Routine 05/16/2025 12:00 AM EDT Encounter for gynecological examination (general) (routine) without abnormal findings PAP SMEAR Routine 05/16/2025 12:00 AM EDT Encounter for gynecological examination (general) (routine) without abnormal findings documented in this encounter Results * HPV with reflex genotype (05/16/2025 12:00 AM EDT) HPV Negative Negative LAB MICROBIOLOGY METHOD 05/21/2025 1:57 PM EDT [facility] Brushing/Spatula Cervix uteri structure / Unknown 05/16/2025 05/20/2025 7:52 AM EDT Farooq Davila MD LAB MOLECULAR DIAGNOSTICS ÁNGEL JIGNESH Final Result [facility] [address] [place] [address], * Pap smear (05/16/2025 12:00 AM EDT) Interpretation Negative for intraepithelial lesion or malignancy 05/22/2025 4:32 PM EDT [facility] General Categorization Negative 05/22/2025 4:32 PM EDT [facility] LMP 04/24/2025 05/22/2025 4:32 PM EDT [facility] Specimen Adequacy Satisfactory for evaluation, endocervical/tellez sformation zone component absent 05/22/2025 4:32 PM EDT [facility] Pap Methodology Liquid Based Pap Test 05/22/2025 4:32 PM EDT [facility] Disclaimer The Pap test is a screening test which carries an inherent false negative rate. These test results should be correlated with the patient's clinical findings and history. This Pap test was processed using an automated screening system. Technical cytopathology services provided by [facility], at [address] [place] [id number] (CLIA # [id number]/Ryan Reyes MD, Soap Maker.) 05/22/2025 4:32 PM EDT [facility] Console Pap Interpretation Reported 05/22/2025 4:32 PM EDT [facility] Brushing/Spatula Cervix uteri structure / Unknown 05/16/2025 05/20/2025 7:52 AM EDT us Farooq Davila MD LAB CYTOLOGY ORDERABLES Final Result [facility] [address] [place] [address], documented in this encounter Visit Diagnoses Diagnosis Encounter for gynecological examination (general) (routine) without abnormal findings documented in this encounter Care Teams Group Activities Aide Relationship Specialty Start Date End Date Zoya Paige PA [address] [place] [phone] PCP - General Internal Medicine 04/07/21 documented as of this encounter
== END 2025-07-30 15:05 | disposition home or self-care (01) ==
LOC: HO.HVS 14:27
PROVIDERS: Visit Provider Surgery Vascular Surgery
DX: I83.11 Varicose veins of right lower extremity with inflammation (principal)
CPT/HCPCS: 99204

== ENCOUNTER → 2025-07-30 14:26 | Outpatient (BNVA) | payer OTHER, SELFPAY | PROVIDERS: Visit Provider Surgery Vascular Surgery | DX: I83.11 Varicose veins of right lower extremity with inflammation (principal) | CPT/HCPCS: 99202 ==

== ENCOUNTER 2025-08-23 14:28 | Outpatient (AMB) | payer OTHER, SELFPAY ==
--- NOTE | 2025-08-23 14:33 | MHC.PC.OV ---
Vital Signs 08/23/25 14:37 Height 5 ft 6 in Weight 160 lb BMI 25.8 BP 98/67 Blood Pressure Location Lt brachial Position Sitting Respiration 12 Pulse 74 Pulse Source Pulse Oximeter Temp 97.1 F Temp Source Oral Pulse Oximetry (%) 99 Oxygen Delivery Method Room Air Intake Visit Reasons: eye infection Intake Note: Patient c/o right eye swollen,red and px to the touch after lash extension. Pot Holder Binder Required: No Allergies No Known Allergies Allergy (Verified 08/23/25 14:37) Medication List - Last Reconciled 08/23/25 by Kinga Stephenson, WARP TYING MACHINE KNOTTER- albuterol sulfate 90 mcg/actuation (ProAir RespiClick) 2 inhalations PO Q6H Tobacco use date assessed: 06/18/25 Dental Screening Dental Screen Date: 06/18/25 HPI HPI Comments History of Present Illness Details 34-year-old female with irritable bowel syndrome, mild intermittent asthma Status post Social: [facility] Admin Support History of Present Illness The patient is a 35-year-old female presenting with right eyelid discomfort and swelling. Traumatic Inflammation of Right Eyelid: - One-day post eyelash extension removal. - Reports pain, redness, swelling; denies purulence. - Eyelid warm to touch; vision unaffected. - [place] better w/ ice pack last night Absence of Tetanus Immunization Record: She is pretty sure she is UTD; declined update today. Review of Systems - Eyes: Reports right eyelid redness, swelling, discomfort, warm to touch. Denies vision changes or purulent discharge. - General: Denies systemic symptoms. Physical Exam General: Well developed, well nourished, in no acute distress. Appears stated age. Head: Normocephalic, atraumatic. Eyes: Right eyelid is red, swollen, and warm to touch. Vision is grossly normal. No signs of infection noted. Left upper and lower lids normal. PERRLA. Conjunctival and scleras clear bilat. Discussion Notes During the visit, we discussed the diagnosis of traumatic inflammation of the right eyelid secondary to improper use of eyelash adhesive. I explained that the condition was not infected but recommended oral prednisone to reduce inflammation. I advised against the use of heat and suggested cool compresses as supportive care. For hygiene, I recommended using Wunsch-Brautkleid's Baby Shampoo due to its tear-free formula. I addressed the lack of recent tetanus immunization record, offering a booster, which the patient declined. I instructed the patient to avoid makeup on the affected eye until symptoms resolve. We discussed the importance of contacting me through the portal if symptoms worsen, with the inclusion of a photograph if possible. Patient was given time to ask questions. All questions were answered to their satisfaction. Assessment and Plan 1. Traumatic Inflammation of Right Eyelid - Oral prednisone for 5 days. - Apply cool compresses; avoid heat. - Use baby shampoo for cleansing. - Avoid makeup; observe for worsening. - Send message on portal if worsening or signs of infection 2. Absence of Tetanus Immunization Record - No booster found; declined new booster. Patient Instructions - Take prednisone once daily with food for five days. - Apply cool compresses to the right eyelid; avoid warm compresses. - Clean eyelid with Dao & Dao's Baby Shampoo. - Avoid wearing makeup on the affected eyelid. - Contact through the portal if symptoms get worse, including a photo. - RTO as scheduled, sooner PRN Consent I discussed the benefits of oral prednisone with the patient, explaining that it reduces inflammation without affecting eye pressure. I also reviewed the absence of recent tetanus records and offered a booster, highlighting tetanus risk after eyelid trauma. The patient opted against the booster at this time. Consent for treatment was verbally obtained from the patient. Patient was informed and verbally consented to the use of an ambient scribe for clinic note documentation during this visit. [facility] Medical History Headache STD (female) IBS (irritable bowel syndrome) Asthma Surgical History H/O: Family History Brother Substance abuse Sister Substance abuse Bone cancer Mother Bladder cancer Maternal Grandmother Lung cancer Social History Household Members: Children Both parents involved: No Caregiver staying overnight: No Housing: Apartment Are you a primary personal care assistant to a significant other at home: Yes Do you presently have visiting nurse or other home services: No 75 years or older and lives alone: No Alcohol intake: current Alcohol intake frequency: a few times a month Patient Tobacco Use Status: Never used Tobacco e-Cigarette/Vaping Use: Never Used service: No Current occupational status: employed 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 Cognitive needs: No Hearing needs: No Vision needs: Yes (wear glasses) Questionnaire Thrive Questionnaire Date Thrive assessed: 06/18/25 I am a: Patient What is your living situation today?: I have a steady place to live Within the past 12 months, did the food you bought not last and you didn't have the money to get more?: I choose not to answer this question Within the past 12 months, did you worry whether your food would run out before you got money to buy more?: I choose not to answer this question Do you have trouble paying for medicines?: I choose not to answer this question Do you have trouble getting transportation to medical appointments?: I choose not to answer this question Do you have trouble paying your heating and electricity bill?: I choose not to answer this question Do you have trouble taking care of your child, family member or friend?: I choose not to answer this question Do you have trouble with day-to-day activities such as bathing, preparing meals, shopping, managing finances, etc.?: I choose not to answer this question Are you currently unemployed and looking for a job?: I choose not to answer this question Are you interested in more education?: I choose not to answer this question Please select the resources that you would like help with: None Currently or been in a relationship where the following occur: No concerns reported THRIVE Score: 0 FUNMILAYO-7 AMB Questionnaire FUNMILAYO-7 Date FUNMILAYO - 7 assessed: 06/18/25 Source: Developed by Drs. Jeff Armstrong, Idalmis Cardoza, Nicholas Avila and colleagues, with an educational mamie from [employer]. Physical exam (Primary Care) Vital Signs: Last Vital Signs Temp 97.1 F 08/23/25 14:37 Pulse 74 08/23/25 14:37 Resp 12 08/23/25 14:37 BP 98/67 08/23/25 14:37 Pulse Ox 99 08/23/25 14:37 Oxygen Delivery Method Room Air 08/23/25 14:37 BMI result Body Mass Index 25.8 Tobacco/Smoking Status: Tobacco use Status Tobacco use date assessed 06/18/25 08/23/25 14:39 Patient Tobacco Use Status Never used Tobacco 08/23/25 14:39 e-Cigarette/Vaping Use Never Used 08/23/25 14:39 Thrive Assessment: Date of Thrive Assessment Date Thrive assessed 06/18/25 08/23/25 14:39 Currently or been in a relationship where the following occur: No concerns reported Coding Level of Care Code Est Pt Level 3 (77645) Complex EM visit Add On G2211 Diagnoses Swelling of right upper eyelid H02.841 Eyelid: upper Up to date with tetanus vaccination Z92.29 Assessment & Plan Assessment & Plan (1) Swelling of right eyelid: Code(s): H02.843 - Edema of right eye, unspecified eyelid Qualifiers: Eyelid: upper Qualified Code(s): H02.841 - Edema of right upper eyelid (2) Up to date with tetanus vaccination: Code(s): Z92.29 - Personal history of other drug therapy Category: Medical Plan . Medications: New prednisone 10 mg PO DAILY 5 tabs 0RF
[2025-08-23 14:37] VITALS: BP 98/67; PULSE 74; RESP 12; TEMP 36.2; O2SAT 99; BMI 25.8
== END 2025-08-23 16:30 | disposition home or self-care (01) ==
LOC: HO.HMCFM 14:29
PROVIDERS: Visit Provider Nurse Practitioner Family
DX: H02.841 Edema of right upper eyelid (principal); Z92.29 Personal history of other drug therapy

== ENCOUNTER → 2025-08-23 14:28 | Outpatient (BNVA) | payer OTHER, SELFPAY | PROVIDERS: Visit Provider Nurse Practitioner Family | DX: J45.20 Mild intermittent asthma, uncomplicated (principal); K58.9 Irritable bowel syndrome, unspecified; H02.841 Edema of right upper eyelid | CPT/HCPCS: 99212 ==

== ENCOUNTER 2025-08-29 10:54 | Outpatient (AMB) | payer OTHER, SELFPAY ==
--- NOTE | 2025-08-29 10:59 | MHC.PC.OV ---
Vital Signs 08/29/25 11:01 Height 5 ft 6 in Weight 161 lb BMI 26.0 BP 105/69 Blood Pressure Location Lt brachial Position Sitting Respiration 12 Pulse 93 Pulse Source Pulse Oximeter Temp 97.0 F Temp Source Oral Pulse Oximetry (%) 98 Oxygen Delivery Method Room Air Intake Visit Reasons: Eye infection Intake Note: Patient c/o right eye infection. Wireless Sales Consultant Required: No Allergies No Known Allergies Allergy (Verified 08/29/25 10:59) Tobacco use date assessed: 08/29/25 Dental Screening Dental Screen Date: 08/29/25 Did you have a dental visit in the last 12 months?: Yes Did you have a dental problem in the last 6 months where you did not have access to dental care?: No Was dental information given to patient?: Patient has dentist HPI HPI Comments History of Present Illness Details 35 year-old female with irritable bowel syndrome, mild intermittent asthma Status post Social: [facility] Admin Support History of Present Illness The patient is a 35-year-old female presenting with right upper eye lid swelling and possible infection. Eyelid Swelling: - Swelling improved initially with prednisone;completed on Tuesday. - continued soreness and droopiness. - Swelling fluctuates with new onset of intermittent warmth to the touch and white pustule that she popped, R upper lid. awoke this AM and now has 2 pustule. - Eye lid and eye feel itchy. Using visine. Washing w/ dial soap, not J&J as recommended at previous visit. Review of Systems - Ocular: Reports eyelid swelling and recurrent pustules, itchiness, gooey discharge upon waking, sensation of warmth. Denies fever. Vision is fine. - Constitutional: Denies systemic symptoms such as fever. Physical Exam General: Well developed, well nourished, in no acute distress. Appears stated age. Head: Normocephalic, atraumatic. Eyes: Right eyelid is red, swollen, and warm to touch. Two white pustules on upper lid near lash line Vision is grossly normal. Left upper and lower lids normal. PERRLA. Conjunctival and scleras clear bilat. Discussion Notes I discussed with the patient the likely diagnoses of eyelid swelling and recurrent pustules on her eyelids. I recommended a treatment plan involving antibiotic eye ointment, erythromycin, to be applied to the affected area. I explained that this could cause temporary blurriness and photosensitivity, advising the use of sunglasses for protection against sunlight. We discussed using tear-free shampoo to help dry out any non-infected styes. I emphasized avoiding makeup to prevent exacerbation of symptoms. I informed the patient of potential escalation to oral antibiotics if the condition does not improve and scheduled a follow-up appointment to re-evaluate her eye condition. Patient was given time to ask questions. All questions were answered to their satisfaction. Assessment and Plan 1. Eyelid Swelling R - Start erythromycin ointment BID x 5 days - Avoid makeup. - Follow-up next week for CPE/Recheck, sooner PRN Patient Instructions - Apply erythromycin ointment to eyelid twice daily for five days. - Do not wear makeup during treatment. - Use tear-free shampoo to cleanse the eye area. - Wear sunglasses outdoors to protect eyes from sunlight. - Follow up next week for further assessment. - Contact me if you experience worsening symptoms or any new concerns. Consent Consent was obtained from the patient for the use of erythromycin ointment. The purpose, potential benefits, and risks, including temporary blurriness and increased sunlight sensitivity, were discussed. Usage instructions were provided. The patient acknowledged understanding and agreed to proceed with the treatment plan outlined. Patient was informed and verbally consented to the use of an ambient scribe for clinic note documentation during this visit. [facility] Medical History Headache STD (female) IBS (irritable bowel syndrome) Asthma Surgical History H/O: Family History Brother Substance abuse Sister Substance abuse Bone cancer Mother Bladder cancer Maternal Grandmother Lung cancer Social History Household Members: Children Housing: Apartment Are you a primary rn home care to a significant other at home: Yes Do you presently have visiting nurse or other home services: No Alcohol intake: current Alcohol intake frequency: a few times a month Patient Tobacco Use Status: Never used Tobacco e-Cigarette/Vaping Use: Never Used service: No Current occupational status: employed 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 Cognitive needs: No Hearing needs: No Vision needs: Yes (wear glasses) Questionnaire Thrive Questionnaire Date Thrive assessed: 06/18/25 I am a: Patient What is your living situation today?: I have a steady place to live Within the past 12 months, did the food you bought not last and you didn't have the money to get more?: I choose not to answer this question Within the past 12 months, did you worry whether your food would run out before you got money to buy more?: I choose not to answer this question Do you have trouble paying for medicines?: I choose not to answer this question Do you have trouble getting transportation to medical appointments?: I choose not to answer this question Do you have trouble paying your heating and electricity bill?: I choose not to answer this question Do you have trouble taking care of your child, family member or friend?: I choose not to answer this question Do you have trouble with day-to-day activities such as bathing, preparing meals, shopping, managing finances, etc.?: I choose not to answer this question Are you currently unemployed and looking for a job?: I choose not to answer this question Are you interested in more education?: I choose not to answer this question Please select the resources that you would like help with: None Currently or been in a relationship where the following occur: No concerns reported THRIVE Score: 0 FUNMILAYO-7 AMB Questionnaire FUNMILAYO-7 Date FUNMILAYO - 7 assessed: 06/18/25 Source: Developed by Drs. Jeff Armstrong, Idalmis Cardoza, Nicholas Avila and colleagues, with an educational mamie from [facility]. Physical exam (Primary Care) Vital Signs: Last Vital Signs Temp 97.0 F 08/29/25 11:01 Pulse 93 08/29/25 11:01 Resp 12 08/29/25 11:01 BP 105/69 08/29/25 11:01 Pulse Ox 98 08/29/25 11:01 Oxygen Delivery Method Room Air 08/29/25 11:01 BMI result Body Mass Index 26.0 Tobacco/Smoking Status: Tobacco use Status Tobacco use date assessed 08/29/25 08/29/25 11:03 Patient Tobacco Use Status Never used Tobacco 08/29/25 11:03 e-Cigarette/Vaping Use Never Used 08/29/25 11:03 Thrive Assessment: Date of Thrive Assessment Date Thrive assessed 06/18/25 08/29/25 11:03 Currently or been in a relationship where the following occur: No concerns reported Coding Level of Care Code Est Pt Level 3 (65512) Complex EM visit Add On G2211 Diagnoses Swelling of right upper eyelid H02.841 Eyelid: upper Eyelid dermatitis, infectious H01.9 Assessment & Plan Assessment & Plan (1) Swelling of right eyelid: Code(s): H02.843 - Edema of right eye, unspecified eyelid Qualifiers: Eyelid: upper Qualified Code(s): H02.841 - Edema of right upper eyelid (2) Eyelid dermatitis, infectious: Code(s): H01.9 - Unspecified inflammation of eyelid Plan . Medications: New erythromycin 0.5 inches ophthalmic (eye) BID 3.5 grams 0RF 5 days
[2025-08-29 11:01] VITALS: BP 105/69; PULSE 93; RESP 12; TEMP 36.1; O2SAT 98; BMI 26.0
--- OUTSIDE RECORDS SUMMARY | 2025-08-29 13:51 | XMS_ITS | Clinical Summary ---
Author Organization [facility] Address [address] [place] [address] Care Team Providers Care Furs Salesperson Name Role Phone Zoya Paige PA-C Primary [...] Done Comments Anxiety Screening 1990 HPV Screening (self-collect) 1990 HPV Screening 1990 Pap + HPV [...] Screen 11/14/2024 01/12/2022 Hypertension Screening (#1) 01/11/2025 [id number] ( season) 2025 Imm-Influenza (#1) 2025 HIV Screening Completed 04/07/2021 Hepatitis C Screening Completed 04/07/2021 Cervical Ablation/Cold-Knife Conization Discontinued Cervical Cryotherapy Discontinued Colposcopy Discontinued Excision/Leep Discontinued HPV Genotyping Discontinued Vaginal [...] EDT) GLUCOSE 81 65 - 99 mg/dL [facility] Comment: Fasting reference interval UREA NITROGEN (BUN) 10 7 - 25 mg/dL [facility] CREATININE (blood) 0.74 0.50 - 1.10 mg/dL [facility] GFR ESTIMATED 108 > OR = 60 mL/min/1 .73m2 [facility] EGFR 125 > OR = 60 mL/min/1 .73m2 [facility] BUN/CREATININE RATIO NOT APPLICABLE [facility] SODIUM 136 135 - 146 mmol/L [facility] POTASSIUM 3.7 3.5 - 5.3 mmol/L [facility] CHLORIDE 103 98 - 110 mmol/L [facility] CARBON DIOXIDE 27 20 - 32 mmol/L [facility] CALCIUM 8.6 8.6 - 10.2 mg/dL [facility] PROTEIN, TOTAL 6.8 6.1 - 8.1 g/dL [facility] ALBUMIN 4.1 3.6 - 5.1 g/dL [facility] GLOBULIN 2.7 1.9 - 3.7 g/dL (calc) [facility] ALBUMIN/GLOBUL IN RATIO 1.5 1.0 - 2.5 (calc) [facility] BILIRUBIN, TOTAL 0.6 0.2 - 1.2 mg/dL [facility] ALKALINE PHOSPHATASE 46 31 - 125 U/L [facility] AST 15 10 - 30 U/L [facility] ALT 8 6 - 29 U/L [facility] Blood Blood / Unknown 06/04/2021 1 :30 PM EDT 06/04/2021 1:30 PM EDT Genia Thomson SPINDRAW OPERATOR LAB - BLOOD DRAW Final Result Performing Organization Address [facility] Co de Phone Number [facility] [address] [address], [facility] [address],[facility] [place] [address] * HEPATITIS C AB W/RFLX HCV RNA, QT, RT PCR (04/07/2021 2:27 PM EDT) HEPATITIS C ANTIBODY NON-REACT ELMER NON-REACT ELMER [facility] SIGNAL TO CUT-OFF 0.01 <1.00 [facility] Comment: HCV antibody was non-reactive. There is no laboratory evidence of HCV infection. In most cases, no further action is required. However, if recent HCV exposure is suspected, a test for HCV RNA (test code 63935) is suggested. For additional information please refer to http://education.Tourlandish/faq/KEE61f7 (This link is being provided for informational/ educational purposes only.) Blood Blood / Unknown 04/07/2021 2 :27 PM EDT 04/07/2021 2:28 PM EDT Zoya Paige PATyraC LAB - BLOOD DRAW Final Resul t Performing Organization Address [facility]/ZIP Co de Phone Number [facility] [address] [address], [employer] [address] [address] from Last 3 Months or Most Recently Relevant to Health Maintenance Insurance [employer]) Member Subscriber Plan / Payer (Ef fective 2021-Present) Name:Sue Ch Relation to Subscriber:Self Name:Sue Ch Payer ID:[id number] Group ID:Not on file Type:Indemnity Address: [address] [place], [place] [id number] Care Teams Furs Salesperson Relationship Specialty Start Date End Date Zoya Paige PA-C [address] [place] [address] PCP - General Internal Medicine 03/17/21
--- OUTSIDE RECORDS SUMMARY | 2025-08-29 13:51 | XMS_ITS | Encounter Summary ---
Author Organization Sarah [facility] Address [address] [place] [address] Care Team Providers Care Orange Picker Name Role Phone Zoya Paige Primary Care Provider [phone] Encounter Details Date Type Department Care Team (Late st Contact Info) Description 06/27/2025 Lab Requisition [facility] - Main Lab 299 [facility] [place] [address] [facility] Lola Hussein & AlvinReyes Ob-Field Tech Acute vaginitis Social History Tobacco Use Types [...] METHOD 06/28/2025 9:34 AM EDT [facility] Chlamydia trachomatis PCR Negative Negative LAB MOLECULAR DIAGNOSTICS METHOD 06/28/2025 9:34 AM EDT [facility] Swab Cervix uteri structure / Unknown 06/27/2025 06/27/2025 6:02 PM EDT [facility] O b-Field Tech [facility] Hussein LAB MICROBIOLOGY - GENERAL ORDERABLES Final Result Performing Organization Address City/[facility]/ZIP Co de Phone Number [facility] [address] [place] [address], [place] [phone] * (ABNORMAL) Vaginitis pathogens molecular study (06/27/2025 12:00 AM EDT) Trichomonas vaginalis Negative Negative 06/28/2025 12:41 PM EDT [facility] Gardnerella vaginalis Positive(A) Negative 06/28/2025 12:41 PM EDT [facility] Olive Species Negative Negative 12:41 PM EDT [facility] Swab Vaginal structure / Unknown 06/27/2025 06/27/2025 6:02 PM EDT [facility] O b-Field Tech [facility] Hussein LAB MICROBIOLOGY - GENERAL ORDERABLES Final Result Performing Organization Address [facility]/ZIP Co de Phone Number [facility] [address] [place] [address], [place] [phone] documented in this encounter Visit Diagnoses Diagnosis Acute vaginitis Unspecified vaginitis and vulvovaginitis documented in this encounter Care Teams Orange Picker Relationship Specialty Start Date End Date Zoya Paige PA [address] [place] [address] PCP - General Internal Medicine 04/07/21 documented as of this encounter
--- OUTSIDE RECORDS SUMMARY | 2025-08-29 13:51 | XMS_ITS | Patient Health Record ---
Author Organization [facility] Address [address] [place] [address] Care Team Providers Care Resident Athletic Trainer Name Role Phone Royal MAXWELL, Zoya Primary Care Provider Unavail able Amy Miller Unavailable [phone] Allergies No Known Allergies Reason For Referral [...] Insured Coverage Start Date Coverage End Date [facility] [address] [place] [address] [id number] DimaSue kennedy Self - patient is the insured Medical (General) History Medical History History ICD Code asthma Broken bones Chicken pox Psoriasis/eczema Surgical History Surgery Date(Month/Year)
--- OUTSIDE RECORDS SUMMARY | 2025-08-29 13:51 | XMS_ITS | Clinical Summary ---
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 vaginitis from Last 3 Months Social History Tobacco [...] of 3 - 19+ 3-dose series) 2009 HPV Vaccines (1 - 3-dose SCD M series) 2017 HIV Screening 10/09/2024 Hepatitis C Screening 10/09/2024 Social Influencers of Health Screening 10/09/2024 Depression Screening 11/14/2024 COVID-19 Vaccine ( - 2023-2 5 season) 2025 Influenza Vaccine (#1) 2025 Cervical Cancer Screening: HPV 05/16/2030 05/16/2025 RSV Immunization Adult Patie nts (1 - 1-dose 75+ series) 2065 HIB Vaccines Aged Out No longer eligi [...] Routine 06/27/2025 12:00 AM EDT Acute vaginitis HPV WITH REFLEX GENOTYPE Routine 05/16/2025 12:00 AM EDT Encounter for gynecological examination (general) (routine) without abnormal findings from Last 3 Months or Most Recently Relevant to Health Maintenance Results * (ABNORMAL) Vaginitis pathogens molecular study (06/27/2025 12:00 AM EDT) Trichomonas vaginalis Negative Negative 06/28/2025 12:41 PM EDT [facility] Gardnerella vaginalis Positive(A) Negative 06/28/2025 12:41 PM EDT [facility] Olive Species Negative Negative 12:41 PM EDT [facility] Swab Vaginal structure / Unknown 06/27/2025 06/27/2025 6:02 PM EDT us Davila Costs & Jaquelin O b-Varsity Baseball Coach [facility] Hussein LAB MICROBIOLOGY - GENERAL ORDERABLES Final Result [facility] [address] [place] [address], [place] [phone] * Chlamydia trachomatis and Neisseria gonorrhoeae molecular study (06/27/2025 12:00 AM EDT) Neisseria gonorrhoeae PCR Negative Negative LAB MOLECULAR DIAGNOSTICS METHOD 06/28/2025 9:34 AM EDT [facility] Chlamydia trachomatis PCR Negative Negative LAB MOLECULAR DIAGNOSTICS METHOD 06/28/2025 9:34 AM EDT [facility] Swab Cervix uteri structure / Unknown 06/27/2025 06/27/2025 6:02 PM EDT Lola Sheehan & Jaquelin O b-Varsity Baseball Coach [facility] Hussein LAB MICROBIOLOGY - GENERAL ORDERABLES Final Result Performing Organization Address City/[facility]/ZIP Co de Phone Number [facility] [address] [place] [address], [place] [phone] * HPV with reflex genotype (05/16/2025 12:00 AM EDT) HPV Negative Negative LAB MICROBIOLOGY METHOD 05/21/2025 1:57 PM EDT [facility] Brushing/Spatula Cervix uteri structure / Unknown 05/16/2025 05/20/2025 7:52 AM EDT Farooq Davila MD LAB MOLECULAR DIAGNOSTICS ÁNGEL EGAN Final Result [facility] [address] [place] [address], [place] [phone] from Last 3 Months or Most Recently Relevant to Health Maintenance Insurance [facility] MEDICA[place] - [place] Care Teams Creative Coordinator Relationship Specialty Start Date End Date Zoya Paige PA [address] [place] [address] PCP - General Internal Medicine 04/07/21
--- OUTSIDE RECORDS SUMMARY | 2025-08-29 13:51 | XMS_ITS | Encounter Summary ---
[facility] Address [address] [place] [address] Care Team Providers Care Net Manager Name Role Phone Zoya Paige Primary Care Provider [phone] Encounter Details Date Type Department Care Team (Latest Contact Info) Description 01/24/2025 Lab Requisition [facility] - Main Lab 299 [facility] [place] [phone] Mary Lazaro MD [address] [phone] Encounter for screening for infections with a [...] MOLECULAR DIAGNOSTICS METHOD 01/25/2025 10:56 AM EDT [facility] Chlamydia trachomatis PCR Negative Negative LAB MOLECULAR DIAGNOSTICS METHOD 01/25/2025 10:56 AM EDT [facility] Swab Cervix uteri structure / Unknown 01/24/2025 01/24/2025 6:12 PM EDT Mary Lazaro MD LAB MICROBIOLOGY - GENER AL ORDERABLES Final Result Performing Organization Address City/[facility]/ZIP Co de Phone Number [facility] [address] [place] [address], [place] [phone] * Vaginitis pathogens molecular study (01/24/2025 12:00 AM EDT) Trichomonas vaginalis Negative Negative 01/25/2025 11:14 AM EDT [facility] Gardnerella vaginalis Negative Negative 01/25/2025 11:14 AM EDT [facility] Olive Species Negative Negative 11:14 AM EDT [facility] Swab Vaginal structure / Unknown 01/24/2025 01/24/2025 6:12 PM EDT Mary Lazaro MD LAB MICROBIOLOGY - GENER AL ORDERABLES Final Result [facility] [address] [place] [address], [place] [phone] documented in this encounter Visit Diagnoses Diagnosis Encounter for screening for infections with a predominantly sexual mode of transmission Acute vaginitis Unspecified vaginitis and vulvovaginitis documented in this encounter Care Teams Net Manager Relationship Specialty Start Date End Date Zoya Paige PA [address] [place] [address] PCP - General Internal Medicine 04/07/21 documented as of this encounter
--- OUTSIDE RECORDS SUMMARY | 2025-08-29 13:51 | XMS_ITS | Encounter Summary ---
Author Organization [facility] Address [address] [place] [address] Care Team Providers Care Lap Hand Tool Name Role Phone Zoya Paige Primary Care Provider Encounter Details Date Type Department Care Team (Latest Contact Info) Description 05/16/[address] [facility] - Main Lab [address] [place] [phone] Farooq Davila MD [address] [phone] Encounter for screening for infections with a [...] MOLECULAR DIAGNOSTICS METHOD 05/17/2025 10:42 AM EDT [facility] Chlamydia trachomatis PCR Negative Negative LAB MOLECULAR DIAGNOSTICS METHOD 05/17/2025 10:42 AM EDT [facility] Swab Cervix uteri structure / Unknown 05/16/2025 05/16/2025 5:54 PM EDT us Farooq Davila MD LAB MICROBIOLOGY - GENERAL ORD ERABLES Final Result [facility] [address] [place] [address], documented in this encounter Visit Diagnoses Diagnosis Encounter for screening for infections with a predominantly sexual mode of transmission documented in this encounter Care Teams Lap Hand Tool Relationship Specialty Start Date End Date Zoya Paige PA [address] [place] [address] PCP - General Internal Medicine 04/07/21 documented as of this encounter
--- OUTSIDE RECORDS SUMMARY | 2025-08-29 13:51 | XMS_ITS | Encounter Summary ---
Author Organization Sarah [facility] Address [address] [place] [address] Care Team Providers Care Route Inspector Name Role Phone Zoya Paige Primary Care Provider [phone] Encounter Details Date Type Department Care Team (Latest Contact Info) Description 05/20/2025 Lab Requisition [facility] - Main Lab 299 [facility] [place] [phone] Farooq Davila MD [address] [phone] Encounter for gynecological examination (general) (routine) without [...] LAB MICROBIOLOGY METHOD 05/21/2025 1:57 PM EDT [facility] Brushing/Spatula Cervix uteri structure / Unknown 05/16/2025 05/20/2025 7:52 AM EDT Farooq Davila MD LAB MOLECULAR DIAGNOSTICS ÁNGEL JIGNESH Final Result [facility] [address] [place] [address], * Pap smear (05/16/2025 12:00 AM EDT) Interpretation Negative for intraepithelial lesion or malignancy 05/22/2025 4:32 PM EDT [facility] General Categorization Negative 05/22/2025 4:32 PM EDT [facility] LMP 04/24/2025 05/22/2025 4:32 PM EDT [facility] Specimen Adequacy Satisfactory for evaluation, endocervical/tellez sformation zone component absent 05/22/2025 4:32 PM EDT [facility] Pap Methodology Liquid Based Pap Test 05/22/2025 4:32 PM EDT [facility] Disclaimer The Pap test is a screening test which carries an inherent false negative rate. These test results should be correlated with the patient's clinical findings and history. This Pap test was processed using an automated screening system. Technical cytopathology services provided by [facility], at [address] [place] [address] (CLIA # [id number]/Ryan Reyes MD, Occupational Health Physiotherapist.) 05/22/2025 4:32 PM EDT [facility] Console Pap Interpretation Reported 05/22/2025 4:32 PM EDT [facility] Brushing/Spatula Cervix uteri structure / Unknown 05/16/2025 05/20/2025 7:52 AM EDT us Farooq Davila MD LAB CYTOLOGY ORDERABLES Final Result [facility] [address] [place] [address], documented in this encounter Visit Diagnoses Diagnosis Encounter for gynecological examination (general) (routine) without abnormal findings documented in this encounter Care Teams Route Inspector Relationship Specialty Start Date End Date Zoya Paige PA [address] [place] [phone] PCP - General Internal Medicine 04/07/21 documented as of this encounter
== END 2025-08-29 11:16 | disposition home or self-care (01) ==
LOC: HO.HMCFM 10:55
PROVIDERS: PCP Nurse Practitioner Family; Visit Provider Nurse Practitioner Family
DX: H02.841 Edema of right upper eyelid (principal); H01.9 Unspecified inflammation of eyelid

== ENCOUNTER → 2025-08-29 10:54 | Outpatient (BNVA) | payer OTHER, SELFPAY | PROVIDERS: PCP Nurse Practitioner Family; Visit Provider Nurse Practitioner Family | DX: H02.841 Edema of right upper eyelid (principal); K58.9 Irritable bowel syndrome, unspecified; J45.20 Mild intermittent asthma, uncomplicated | CPT/HCPCS: 99212 ==

== ENCOUNTER 2025-09-06 10:43 | Outpatient (AMB) | payer OTHER, SELFPAY ==
--- NOTE | 2025-09-06 10:37 | MHC.PC.OV ---
Intake Visit Reasons: follow/up eye infection Manager Operational Required: No Accompanied by: Self / Same As Patient Allergies No Known Allergies Allergy (Verified 09/06/25 10:37) Tobacco use date assessed: 08/29/25 Dental Screening Dental Screen Date: 08/29/25 HPI HPI Comments History of Present Illness Details Called patient x 3 Left message on machine No return call. will have office call to reschedule' Time Spent 7 min trying to call her [facility] Medical History Headache STD (female) IBS (irritable bowel syndrome) Asthma Surgical History H/O: Family History Brother Substance abuse Sister Substance abuse Bone cancer Mother Bladder cancer Maternal Grandmother Lung cancer Social History Household Members: Children Both parents involved: No Caregiver staying overnight: No Housing: Apartment Are you a primary certified caregiver to a significant other at home: Yes Do you presently have visiting nurse or other home services: No 75 years or older and lives alone: No Alcohol intake: current Alcohol intake frequency: a few times a month Patient Tobacco Use Status: Never used Tobacco e-Cigarette/Vaping Use: Never Used service: No Current occupational status: employed 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 Jeff Armstrong, Idalmis Cardoza, Nicholas Avila and colleagues, with an educational mamie from [employer]. Physical exam (Primary Care) Tobacco/Smoking Status: Tobacco use Status Tobacco use date assessed 08/29/25 09/06/25 10:38 Patient Tobacco Use Status Never used Tobacco 09/06/25 10:38 e-Cigarette/Vaping Use Never Used 09/06/25 10:38 Thrive Assessment: Date of Thrive Assessment Date Thrive assessed 06/18/25 09/06/25 10:38 Telehealth Telehealth Telehealth Platform: [employer] Location of provider rendering services: practice address Location of patient: address on file Patient Identification confirmed using: Name, : Yes Telehealth method: video Patient verbally consented to treatment: Yes Patient verbally consented to billing insurance company: Yes Patient informed of any privacy concerns related to visit: Yes Coding Level of Care Code Tele Est Pt Level 1 (59794) Complex EM visit Add On G2211 Diagnoses Infectious dermatitis of eyelid H01.9 Swelling of right eyelid H02.843 Assessment & Plan Assessment & Plan (1) Infectious dermatitis of eyelid: Code(s): H01.9 - Unspecified inflammation of eyelid (2) Swelling of right eyelid: Code(s): H02.843 - Edema of right eye, unspecified eyelid Plan .
--- OUTSIDE RECORDS SUMMARY | 2025-09-06 12:24 | XMS_ITS | Patient Health Record ---
Author Organization [facility] Address [address] [facility] [place] [address] Care Team Providers Care Manager Distribution Name Role Phone Royal MAXWELL, Zoya Primary Care Provider Unavail able Amy Miller Unavailable [phone] Allergies No Known Allergies Reason For Referral [...] Insured Coverage Start Date Coverage End Date [employer] [address] [place] [address] [id number] DimaSue kennedy Self - patient is the insured Medical (General) History Medical History History ICD Code asthma Broken bones Chicken pox Psoriasis/eczema Surgical History Surgery Date(Month/Year)
--- OUTSIDE RECORDS SUMMARY | 2025-09-06 12:24 | XMS_ITS | Encounter Summary ---
Author Organization Sarah [facility] Address [address] [place] [address] Care Team Providers Care Nylon Mender Name Role Phone Zoya Paige Primary Care Provider [phone] Encounter Details Date Type Department Care Team (Late st Contact Info) Description 06/27/[address] 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) [facility] Chlamydia trachomatis PCR Negative Negative LAB MOLECULAR DIAGNOSTICS METHOD 06/28/2025 9:34 AM EDT [facility] Swab Cervix uteri structure / Unknown 06/27/2025 06/27/2025 6:02 PM EDT [facility] [email or web address] [facility]ett[facility] O b-Hand Stemmer [facility] Hussein LAB MICROBIOLOGY - GENERAL ORDERABLES Final Result Performing Organization Address City/[facility]/ZIP Co de Phone Number [facility] [address] [place] [address], [place] [phone] * (ABNORMAL) Vaginitis pathogens molecular study (06/27/2025 12:00 AM EDT) Trichomonas vaginalis Negative Negative 06/28/2025 12:41 PM EDT [facility] Gardnerella vaginalis Positive(A) Negative 06/28/2025 12:41 PM EDT [facility] Olive Species Negative Negative 12:41 PM EDT [facility] Swab Vaginal structure / Unknown 06/27/2025 06/27/2025 6:02 PM EDT [facility] [email or web address] & [facility]-Bettina O b-Hand Stemmer [facility] Hussein LAB MICROBIOLOGY - GENERAL ORDERABLES Final Result Performing Organization Address [place]/[facility]/ZIP Co de Phone Number [facility] [address] [place] [address], [place] [phone] documented in this encounter Visit Diagnoses Diagnosis Acute vaginitis Unspecified vaginitis and vulvovaginitis documented in this encounter Care Teams Nylon Mender Relationship Specialty Start Date End Date Zoya Paige PA [address] [place] [address] PCP - General Internal Medicine 04/07/21 documented as of this encounter
--- OUTSIDE RECORDS SUMMARY | 2025-09-06 12:24 | XMS_ITS | Encounter Summary ---
[facility] Address [address] [place] [address] Care Team Providers Care Obstetrician And Gynaecologist Name Role Phone Zoya Paige Primary Care Provider [phone] Encounter Details Date Type Department Care Team (Latest Contact Info) Description 05/16/[address] [facility] - Main Lab [address] [place] [phone] Farooq Davila MD [address] [phone] Encounter for screening for infections with a [...] MOLECULAR DIAGNOSTICS METHOD 05/17/2025 10:42 AM EDT [facility] Chlamydia trachomatis PCR Negative Negative LAB MOLECULAR DIAGNOSTICS METHOD 05/17/2025 10:42 AM EDT [facility] Swab Cervix uteri structure / Unknown 05/16/2025 05/16/2025 5:54 PM EDT us Farooq Davila MD LAB MICROBIOLOGY - GENERAL ORD ERABLES Final Result [facility] [address] [place] [address], documented in this encounter Visit Diagnoses Diagnosis Encounter for screening for infections with a predominantly sexual mode of transmission documented in this encounter Care Teams Obstetrician And Gynaecologist Relationship Specialty Start Date End Date Zoya Paige PA [address] [place] [address] PCP - General Internal Medicine 04/07/21 documented as of this encounter
--- OUTSIDE RECORDS SUMMARY | 2025-09-06 12:24 | XMS_ITS | Clinical Summary ---
Author Organization [facility] Address [address] [place] [address] Care Team Providers Care Dobie Worker Name Role Phone Zoya Paige PA-C Primary [...] Screen 11/14/2024 01/12/2022 Hypertension Screening (#1) 01/11/2025 [id number] ( season) 2025 Imm-Influenza (#1) 2025 HIV [...] EDT) GLUCOSE 81 65 - 99 mg/dL [employer] [facility] Comment: Fasting reference interval UREA NITROGEN (BUN) 10 7 - 25 mg/dL [employer] [facility] CREATININE (blood) 0.74 0.50 - 1.10 mg/dL [employer] [facility] GFR ESTIMATED 108 > OR = 60 mL/min/1 .73m2 [facility] [facility] EGFR 125 > OR = 60 mL/min/1 .73m2 [facility] BUN/CREATININE RATIO NOT APPLICABLE [facility] [facility] [facility] SODIUM 136 135 - 146 mmol/L [facility] [facility] POTASSIUM 3.7 3.5 - 5.3 mmol/L [facility] [facility] [facility] CHLORIDE 103 98 - 110 mmol/L [facility] [facility] CARBON DIOXIDE 27 20 - 32 mmol/L [facility] [facility] [facility] CALCIUM 8.6 8.6 - 10.2 mg/dL [facility] [facility] PROTEIN, TOTAL 6.8 6.1 - 8.1 g/dL [facility] ALBUMIN 4.1 3.6 - 5.1 g/dL [facility] [facility] GLOBULIN 2.7 1.9 - 3.7 g/dL (calc) [facility] ALBUMIN/GLOBUL IN RATIO 1.5 1.0 - 2.5 (calc) [facility] BILIRUBIN, TOTAL 0.6 0.2 - 1.2 mg/dL [facility] ALKALINE PHOSPHATASE 46 31 - 125 U/L [facility] [facility] AST 15 10 - 30 U/L [facility] [facility] ALT 8 6 - 29 U/L [employer] [facility] Blood Blood / Unknown 06/04/2021 1 :30 PM EDT 06/04/2021 1:30 PM EDT [facility] - BLOOD DRAW Final Result Performing Organization Address [facility] Co de Phone Number [employer] [address] [address], [employer] [address],[facility] [place] [address] * HEPATITIS C AB W/RFLX HCV RNA, QT, RT PCR (04/07/2021 2:27 PM EDT) HEPATITIS C ANTIBODY NON-REACT ELMER NON-REACT ELMER [facility] SIGNAL TO CUT-OFF 0.01 <1.00 [employer] [facility] Comment: HCV antibody was non-reactive. There is no laboratory evidence of HCV infection. In most cases, no further action is required. However, if recent HCV exposure is suspected, a test for HCV RNA (test code 37481) is suggested. For additional information please refer to http://education.MedPassage/faq/VKA55f1 (This link is being provided for informational/ educational purposes only.) Blood Blood / Unknown 04/07/2021 2 :27 PM EDT 04/07/2021 2:28 PM EDT Zoya Paige [facility] LAB - BLOOD DRAW Final Resul t Performing Organization Address [facility]/ZIP Co de Phone Number [employer] [address] [address], [employer] [address] [address] from Last 3 Months or Most Recently Relevant to Health Maintenance Insurance [employer] ([email or web address]) Member Subscriber Plan / Payer (Ef fective 2021-Present) Name:Sue Ch Relation to Subscriber:Self Name:Sue Ch Payer ID:[id number] Group ID:Not on file Type:Indemnity Address: [address] [place], [place] [id number] Care Teams Dobie Worker Relationship Specialty Start Date End Date Zoya Pagie PA-C [address] [place] [address] PCP - General Internal Medicine 03/17/21
--- OUTSIDE RECORDS SUMMARY | 2025-09-06 12:24 | XMS_ITS | Encounter Summary ---
[facility] Address [address] [place] [address] Care Team Providers Care Systems Mechanic Name Role Phone Zoya Paige Primary Care Provider Encounter Details Date Type Department Care Team (Latest Contact Info) Description 01/24/2025 Lab Requisition [facility] - Main Lab [address] [facility] [place] [phone] Mary Lazaro MD [address] [phone] Encounter for screening for infections with a [...] MOLECULAR DIAGNOSTICS METHOD 01/25/2025 10:56 AM EDT [facility] Chlamydia trachomatis PCR Negative Negative LAB MOLECULAR DIAGNOSTICS METHOD 01/25/2025 10:56 AM EDT [facility] Swab Cervix uteri structure / Unknown 01/24/2025 01/24/2025 6:12 PM EDT Mary Lazaro MD LAB MICROBIOLOGY - GENER AL ORDERABLES Final Result Performing Organization Address City/[facility]/ZIP Co de Phone Number [facility] [address] [place] [address], [place] [phone] * Vaginitis pathogens molecular study (01/24/2025 12:00 AM EDT) Trichomonas vaginalis Negative Negative 01/25/2025 11:14 AM EDT [facility] Gardnerella vaginalis Negative Negative 01/25/2025 11:14 AM EDT [facility] Olive Species Negative Negative 11:14 AM EDT [facility] Swab Vaginal structure / Unknown 01/24/2025 01/24/2025 6:12 PM EDT Mary Lazaro MD LAB MICROBIOLOGY - GENER AL ORDERABLES Final Result [facility] [address] [place] [address], [place] [phone] documented in this encounter Visit Diagnoses Diagnosis Encounter for screening for infections with a predominantly sexual mode of transmission Acute vaginitis Unspecified vaginitis and vulvovaginitis documented in this encounter Care Teams Systems Mechanic Relationship Specialty Start Date End Date Zoya Paige PA [address] [place] [address] PCP - General Internal Medicine 04/07/21 documented as of this encounter
--- OUTSIDE RECORDS SUMMARY | 2025-09-06 12:24 | XMS_ITS | Encounter Summary ---
Author Organization [facility] Address [address] [place] [address] Care Team Providers Care Training Representative Name Role Phone Zoya Paige Primary Care Provider [phone] Encounter Details Date Type Department Care Team (Latest Contact Info) Description 05/20/2025 Lab Requisition [facility] - Main Lab 299 [facility] [place] [phone] Farooq Davila MD [address] [phone] Encounter for gynecological examination (general) (routine) without [...] LAB MICROBIOLOGY METHOD 05/21/2025 1:57 PM EDT [facility] Brushing/Spatula Cervix uteri structure / Unknown 05/16/2025 05/20/2025 7:52 AM EDT Farooq Davila MD LAB MOLECULAR DIAGNOSTICS ÁNGEL JIGNESH Final Result [facility] [address] [place] [address], * Pap smear (05/16/2025 12:00 AM EDT) Interpretation Negative for intraepithelial lesion or malignancy 05/22/2025 4:32 PM EDT [facility] General Categorization Negative 05/22/2025 4:32 PM EDT [facility] LMP 04/24/2025 05/22/2025 4:32 PM EDT [facility] Specimen Adequacy Satisfactory for evaluation, endocervical/tellez sformation zone component absent 05/22/2025 4:32 PM EDT [facility] Pap Methodology Liquid Based Pap Test 05/22/2025 4:32 PM EDT [facility] Disclaimer The Pap test is a screening test which carries an inherent false negative rate. These test results should be correlated with the patient's clinical findings and history. This Pap test was processed using an automated screening system. Technical cytopathology services provided by [facility], at [address] [place] [id number] (CLIA # [id number]/Ryan Reyes MD, Certified Ethical Hacker.) 05/22/2025 4:32 PM EDT [facility] Console Pap Interpretation Reported 05/22/2025 4:32 PM EDT [facility] Brushing/Spatula Cervix uteri structure / Unknown 05/16/2025 05/20/2025 7:52 AM EDT us Farooq Davila MD LAB CYTOLOGY ORDERABLES Final Result [facility] [address] [place] [address], documented in this encounter Visit Diagnoses Diagnosis Encounter for gynecological examination (general) (routine) without abnormal findings documented in this encounter Care Teams Training Representative Relationship Specialty Start Date End Date Zoya Paige PA [address] [place] [phone] PCP - General Internal Medicine 04/07/21 documented as of this encounter
--- OUTSIDE RECORDS SUMMARY | 2025-09-06 12:24 | XMS_ITS | Clinical Summary ---
[facility] Address [address] [place] [address] Care Team Providers Care [employer] Professional Name Role Phone Zoya Paige Primary Care Provider [phone] Encounters Date Type Department Care Team Description 06/27/[address] [facility] - Main Lab 299 [facility] [place] [address] [facility] Lola Hussein & Jaquelin Ob-Lead Slot Technician Acute vaginitis from Last 3 Months Social [...] vaginalis Negative Negative 06/28/2025 12:41 PM EDT [facility] Gardnerella vaginalis Positive(A) Negative 06/28/2025 12:41 PM EDT [facility] Olive Species Negative Negative 12:41 PM EDT [facility] Swab Vaginal structure / Unknown 06/27/2025 06/27/2025 6:02 PM EDT us Davila Costs & Jaquelin O b-Lead Slot Technician Rust Hussein LAB MICROBIOLOGY - GENERAL ORDERABLES Final Result [facility] [address] [place] [address], [place] [phone] * Chlamydia trachomatis and Neisseria gonorrhoeae molecular study (06/27/2025 12:00 AM EDT) Neisseria gonorrhoeae PCR Negative Negative LAB MOLECULAR DIAGNOSTICS METHOD 06/28/2025 9:34 AM EDT [facility] Chlamydia trachomatis PCR Negative Negative LAB MOLECULAR DIAGNOSTICS METHOD 06/28/2025 9:34 AM EDT [facility] Swab Cervix uteri structure / Unknown 06/27/2025 06/27/2025 6:02 PM EDT Lola Sheehan & Jaquelin O b-Lead Slot Technician Rust Hussein LAB MICROBIOLOGY - GENERAL ORDERABLES Final Result Performing Organization Address City/[facility]/ZIP Co de Phone Number [facility] [address] [place] [address], [place] [phone] * HPV with reflex genotype (05/16/2025 12:00 AM EDT) HPV Negative Negative LAB MICROBIOLOGY METHOD 05/21/2025 1:57 PM EDT [facility] Brushing/Spatula Cervix uteri structure / Unknown 05/16/2025 05/20/2025 7:52 AM EDT Farooq Davila MD LAB MOLECULAR DIAGNOSTICS ÁNGEL EGAN Final Result [facility] [address] [place] [address], [place] [phone] from Last 3 Months or Most Recently Relevant to Health Maintenance Insurance [facility] MEDICAID - [place] Care Teams Retail Parts Professional Relationship Specialty Start Date End Date Zoya Paige PA [address] [place] [phone] PCP - General Internal Medicine 04/07/21
== END 2025-09-06 11:04 | disposition home or self-care (01) ==
LOC: HO.HMCFM 10:43
PROVIDERS: PCP Nurse Practitioner Family; Visit Provider Nurse Practitioner Family
DX: H01.9 Unspecified inflammation of eyelid (principal); H02.843 Edema of right eye, unspecified eyelid